=== PATIENT | female | born 1940 | race Caucasian/White ===

== ENCOUNTER 2017-05-12 18:09 | Emergency (ER) | payer MEDICARE, OTHER ==
[2010-08-06 23:16] VITALS: BMI 26.2
[2017-05-13] MEDS ORDERED: SYNTHROID137 MCG PO (13:04)
[2017-05-13] MEDS ORDERED: ATIVAN1 MG PO (13:05)
[2017-05-13 14:53] VITALS: BMI 24.7
== END 2017-05-12 20:13 | disposition left against medical advice (07) ==
LOC: D.ER 18:09
DX: R53.1 Weakness (principal); W01.0XXA Fall on same level from slipping, tripping and stumbling without subsequent striking against object, initial encounter; Y93.89 Activity, other specified; Y92.014 Private driveway to single-family (private) house as the place of occurrence of the external cause; F17.200 Nicotine dependence, unspecified, uncomplicated; F10.10 Alcohol abuse, uncomplicated

== ENCOUNTER 2017-05-12 22:34 | Inpatient (IN) | payer MEDICARE, OTHER ==
[~2017-05-12] VITALS: Ht 157.5 cm; Wt 61.4 kg
--- NOTE | ~2017-05-12 | EC ---
PATIENT:SILVIA DEGROOT DATE OF SERVICE: 05/13/17 SEX: F MEDICAL RECORD: [id number] DATE OF : 36 LOCATION:[facility] AGE OF PATIENT: 76 ADMISSION DATE: 05/14/17 REFERRING PHYSICIAN: INTERPRETING PHYSICIAN: NIDA MARTIN MD ECHOCARDIOGRAM REPORT ECHO CHARGES 4 ECHO COMPLETE CLINICAL DIAGNOSIS: ASSESS LV FUN ECHOCARDIOGRAPHIC MEASUREMENTS (adult normal given) AC root (d.<3.7cm) 3.6 cm LV Septum d (<1.2 cm> 1.4 cm Valve Excursion 2.0 cm LV Septum (systole) 1.5 cm Left Atria (s.<4.0cm> 2.9 cm LVPW d(<1.2cm) 1.4 cm RV (d.<2.3cm) 3.7 cm LVPW (sytole) 1.6 cm LV diastole(<5.6CM) 4.6 cm MV E-F(>70mm/sec) cm LV systole 3.5 cm LVOT Diameter 1.5 cm MV exc.(>10mm) 1.3 cm Est.ejection fraction (50-75%) % Pericardial Effusion N DOPPLER: LVIT cm/sec A 86.0 cm/sec E 57.0 cm/sec LA cm/sec RVSP 19 mmHg LVOT 105 cm/sec AOP1/2T m/s Asc. Ao 159 cm/sec RVOT 86 cm/sec RA cm/sec PA 122 cm/sec AV Gradient Peak 10.06mmHg AV Mean 5.33 mmHg AV Area 1.3 cm MV Gradient Peak 4.74 mmHg MV Mean 1.16 mmHg MV Area cm COMMENTS: Sales Operations Analyst: Jonathan TRACY Barber Instructor: 2 Dr. Lagunas TAPE# PACS DATE OF SERVICE: 05/14/2017 PROCEDURE: Echocardiogram. FINDINGS: 1. Left ventricular chamber size is within normal limits. Left ventricular systolic function is normal. Overall ejection fraction estimated at 60%. 2. Left atrium, right atrium, and right ventricular chamber sizes are within normal limits. 3. Valvular structures have normal structure and motion. ECHOCARDIOGRAM REPORT [id number] SILVIA DEGROOT 4. Doppler interrogation reveals no significant valvular insufficiency or stenosis. 5. No evidence of pericardial effusion or left ventricular thrombus. TRANSINT:[id number] Voice Confirmation ID: [id number] DOCUMENT ID: [id number] NIDA MARTIN MD at 1800 CC: [id number] DICTATION DATE: 05/14/17 1316 FOUNDER AND CHIEF EXECUTIVE OFFICER: 05/14/17 1414 ADM IN [place] [id number] [place] [id number]
[2017-05-13 00:03] LABS: HEMATOCRIT 34.7 % (36.0-48.0); HEMOGLOBIN 12.2 g/dL (12-16); LYMPHOCYTES 7.8 % (15-50); MCH 37.8 pg (26.0-34.0); MCHC 35.2 g/dL (31.0-37.0); MCV 107.4 fL (80.0-100.0); NEUTROPHILS 83.1 % (40-80); PLATELET COUNT 300 10x3/uL (130-400); RBC 3.23 10x6/uL (4.00-5.40); RDW 14.3 % (11.5-14.5); WBC 8.9 10x3/uL (4.8-10.8)
[2017-05-13 00:12] LABS: ALBUMIN 3.3 g/dL (3.4-5.0); ANION GAP 15.2 mmol/L (8-16); BILIRUBIN - TOTAL 0.5 mg/dL (0.2-1.3); CALCIUM 8.4 mg/dL (8.5-10.1); CARBON DIOXIDE 25.7 mmol/L (21.0-32.0); CREATININE - SERUM 1.3 mg/dL (0.6-1.3); POTASSIUM - SERUM 3.9 mmol/L (3.5-5.1); PROTEIN - SERUM 6.5 g/dL (6.4-8.2)
[2017-05-13 01:14] LABS: UDS - AMPHET NEGATIVE QUAL (NEGATIVE); UDS - BARB NEGATIVE QUAL (NEGATIVE); UDS - BENZO NEGATIVE QUAL (NEGATIVE); UDS - COCAINE NEGATIVE QUAL (NEGATIVE); UDS - OPIATE NEGATIVE QUAL (NEGATIVE); UDS - PCP NEGATIVE QUAL (NEGATIVE); UDS - THC NEGATIVE QUAL (NEGATIVE)
[2017-05-13 01:17] LABS: APPEARANCE CLEAR (CLEAR); BILIRUBIN NEGATIVE (NEGATIVE); COLOR YELLOW (YELLOW); GLUCOSE NEGATIVE (NEGATIVE); KETONE SMALL mg/dL (NEGATIVE); NITRITE NEGATIVE (NEGATIVE); PROTEIN NEGATIVE (NEGATIVE); SPECIFIC GRAVITY 1.015 (1.005-1.020); UROBILINOGEN NORMAL (NORMAL)
[2017-05-13 01:18] LABS: BACTERIA FEW /hpf (NONE SEEN); CALCIUM OXALATE CRYSTALS 0-5 /hpf (NONE SEEN); EPITHELIAL CELLS 0-5 /hpf (0-5); HYALINE CAST 0-5 /lpf (NONE SEEN); MUCUS <1+ /lpf (NONE SEEN); RED CELLS - URINE NONE SEEN /hpf (0-5); WHITE CELLS - URINE 0-5 /hpf (0-5)
[2017-05-13] MEDS ORDERED: SYNTHROID137 MCG PO (13:04)
[2017-05-13 13:05] VITALS: BP 160/76; BMI 24.7
[2017-05-13] MEDS ORDERED: ATIVAN1 MG PO (13:05)
[2017-05-13 14:53] VITALS: Ht 157.5 cm; Wt 61.4 kg
[2017-05-13 16:25] VITALS: BP 128/56
[2017-05-13 20:00] VITALS: BP 136/60
[2017-05-13 20:56] LABS: THYROID STIMULATING HORMONE 95.89 uIU/mL (0.36-3.74)
[2017-05-13 21:45] LABS: % SATURATION 18 % (15-55); IRON 46 ug/dl (35-150); TOTAL IRON BIND CAPACITY 245 ug/dl (260-445); UNSAT IRON BIND CAPACITY 199 ug/dl (150-375)
[2017-05-14] VITALS: BP 142/71
[2017-05-14 04:00] VITALS: BP 142/73
[2017-05-14 05:06] LABS: ANION GAP 14.2 mmol/L (8-16); CALCIUM 8.1 mg/dL (8.5-10.1); CARBON DIOXIDE 22.2 mmol/L (21.0-32.0); POTASSIUM - SERUM 3.4 mmol/L (3.5-5.1)
[2017-05-14 05:08] LABS: BASOPHILS 0.3 % (0-2); EOSINOPHILS 1.9 % (0-7); HEMATOCRIT 34.5 % (36.0-48.0); HEMOGLOBIN 11.5 g/dL (12-16); IMMATURE GRANULOCYTES 0.4 % (0-5); LYMPHOCYTES 16.7 % (15-50); MCH 37.2 pg (26.0-34.0); MCHC 33.3 g/dL (31.0-37.0); MEAN PLATELET VOLUME 9.1 fL (7.4-10.4); MONOCYTES 8.4 % (2-11); NEUTROPHILS 72.3 % (40-80); PLATELET COUNT 271 10x3/uL (130-400); RBC 3.09 10x6/uL (4.00-5.40); RDW 14.5 % (11.5-14.5); WBC 6.8 10x3/uL (4.8-10.8)
[2017-05-14 05:09] LABS: MCV 111.7 fL (80.0-100.0)
[2017-05-14 08:06] VITALS: BP 159/62
[2017-05-14 12:02] VITALS: BP 133/51
[2017-05-14 17:15] VITALS: BP 110/72
[2017-05-14 20:00] VITALS: BP 144/70
[2017-05-15] VITALS (7 sets, daily range): BP systolic 126–152; BP diastolic 57–88
[2017-05-15 06:39] LABS: CALC OSMOLALITY 281 mosm/kg (275-300); CALCIUM 7.9 mg/dL (8.5-10.1); CARBON DIOXIDE 19.4 mmol/L (21.0-32.0); CHLORIDE - SERUM 110 mmol/L (98-107); CREATININE - SERUM 0.7 mg/dL (0.6-1.3); GLUCOSE 95 mg/dL (74-106); HEMATOCRIT 36.1 % (36.0-48.0); HEMOGLOBIN 12.5 g/dL (12-16); LYMPHOCYTES 18.5 % (15-50); MCH 38.1 pg (26.0-34.0); MCHC 34.6 g/dL (31.0-37.0); MCV 110.1 fL (80.0-100.0); MEAN PLATELET VOLUME 8.4 fL (7.4-10.4); NEUTROPHILS 67.6 % (40-80); PLATELET COUNT 239 10x3/uL (130-400); POTASSIUM - SERUM 3.8 mmol/L (3.5-5.1); RBC 3.28 10x6/uL (4.00-5.40); RDW 14.7 % (11.5-14.5); SODIUM 142 mmol/L (136-145); UREA NITROGEN 10 mg/dL (7-18); WBC 5.3 10x3/uL (4.8-10.8); eGFR NON AFRICAN AMERICAN 86 mL/min (90-120)
[2017-05-15 08:16] LABS: FOLATE (FOLIC ACID) - SERUM 10.4 ng/mL (>3.0)
[2017-05-16 04:00] VITALS: BP 156/80
[2017-05-16 05:00] LABS: BASOPHILS 0.4 % (0-2); EOSINOPHILS 1.9 % (0-7); HEMATOCRIT 31.5 % (36.0-48.0); HEMOGLOBIN 10.5 g/dL (12-16); IMMATURE GRANULOCYTES 0.8 % (0-5); LYMPHOCYTES 10.3 % (15-50); MCH 37.1 pg (26.0-34.0); MCHC 33.3 g/dL (31.0-37.0); MCV 111.3 fL (80.0-100.0); MEAN PLATELET VOLUME 8.8 fL (7.4-10.4); MONOCYTES 12.2 % (2-11); NEUTROPHILS 74.4 % (40-80); PLATELET COUNT 227 10x3/uL (130-400); RBC 2.83 10x6/uL (4.00-5.40); RDW 14.5 % (11.5-14.5); WBC 4.8 10x3/uL (4.8-10.8)
[2017-05-16 05:05] LABS: CALCIUM 7.7 mg/dL (8.5-10.1); CREATININE - SERUM 0.8 mg/dL (0.6-1.3)
[2017-05-16 05:09] LABS: ANION GAP 10.7 mmol/L (8-16); CARBON DIOXIDE 28.2 mmol/L (21.0-32.0); POTASSIUM - SERUM 2.9 mmol/L (3.5-5.1)
[2017-05-16 09:14] VITALS: BP 140/66
[2017-05-16] MEDS ORDERED: PROTONIX40 MG PO (13:24)
[2017-05-16] MEDS ORDERED: Multivitamin LIQUID PO (13:25)
[2017-05-16] MEDS ORDERED: THIAMINE HCL50 MG PO (13:25)
[2017-05-16 13:54] VITALS: BP 160/70
[2017-05-16 16:25] VITALS: BP 143/77
[2017-05-16 20:00] VITALS: BP 128/56
[2017-05-17 02:27] VITALS: BP 124/54
[2017-05-17 04:00] VITALS: BP 118/50
[2017-05-17 05:46] LABS: BASOPHILS 0.8 % (0-2); EOSINOPHILS 0.5 % (0-7); HEMATOCRIT 33.8 % (36.0-48.0); HEMOGLOBIN 11.3 g/dL (12-16); IMMATURE GRANULOCYTES 0.5 % (0-5); LYMPHOCYTES 14.4 % (15-50); MCH 37.4 pg (26.0-34.0); MCHC 33.4 g/dL (31.0-37.0); MCV 111.9 fL (80.0-100.0); MEAN PLATELET VOLUME 8.8 fL (7.4-10.4); MONOCYTES 11.1 % (2-11); NEUTROPHILS 72.7 % (40-80); PLATELET COUNT 205 10x3/uL (130-400); RBC 3.02 10x6/uL (4.00-5.40); RDW 14.7 % (11.5-14.5)
[2017-05-17 05:56] LABS: ANION GAP 11.7 mmol/L (8-16); CALCIUM 8.2 mg/dL (8.5-10.1); CARBON DIOXIDE 29.3 mmol/L (21.0-32.0); CREATININE - SERUM 0.8 mg/dL (0.6-1.3)
[2017-05-17 08:00] VITALS: BP 137/66
[2017-05-17 11:22] LABS: MAGNESIUM - SERUM 1.9 mg/dL (1.8-2.4); PHOSPHOROUS 3.6 mg/dL (2.5-4.9)
[2017-05-17 11:58] VITALS: BP 140/75
[2017-05-17 15:41] VITALS: BP 155/64
[2017-05-17 21:58] VITALS: BP 159/71
[2017-05-18 05:55] LABS: BASOPHILS 0.3 % (0-2); EOSINOPHILS 0.7 % (0-7); HEMATOCRIT 34.6 % (36.0-48.0); HEMOGLOBIN 11.4 g/dL (12-16); IMMATURE GRANULOCYTES 0.7 % (0-5); LYMPHOCYTES 14.7 % (15-50); MCH 36.4 pg (26.0-34.0); MCHC 32.9 g/dL (31.0-37.0); MCV 110.5 fL (80.0-100.0); MONOCYTES 12.7 % (2-11); NEUTROPHILS 70.9 % (40-80); PLATELET COUNT 176 10x3/uL (130-400); RBC 3.13 10x6/uL (4.00-5.40); RDW 14.2 % (11.5-14.5)
[2017-05-18 06:06] LABS: ANION GAP 11.9 mmol/L (8-16); CALCIUM 8.1 mg/dL (8.5-10.1); CARBON DIOXIDE 27.3 mmol/L (21.0-32.0); CREATININE - SERUM 0.8 mg/dL (0.6-1.3); POTASSIUM - SERUM 3.2 mmol/L (3.5-5.1)
[2017-05-18 09:42] VITALS: BP 151/84
[2017-05-18 13:19] VITALS: BP 148/80
[2017-05-18 17:02] VITALS: BP 145/78
[2017-05-19] VITALS: BP 123/75
[2017-05-19 04:00] VITALS: BP 141/68
[2017-05-19 04:35] LABS: BASOPHILS 0.3 % (0-2); EOSINOPHILS 0.9 % (0-7); HEMOGLOBIN 11.5 g/dL (12-16); IMMATURE GRANULOCYTES 0.3 % (0-5); LYMPHOCYTES 20.5 % (15-50); MCH 36.5 pg (26.0-34.0); MCHC 32.9 g/dL (31.0-37.0); MCV 111.1 fL (80.0-100.0); MEAN PLATELET VOLUME 9.1 fL (7.4-10.4); MONOCYTES 11.6 % (2-11); NEUTROPHILS 66.4 % (40-80); PLATELET COUNT 167 10x3/uL (130-400); RBC 3.15 10x6/uL (4.00-5.40); RDW 14.3 % (11.5-14.5); WBC 3.4 10x3/uL (4.8-10.8)
[2017-05-19 04:51] LABS: ALBUMIN 2.6 g/dL (3.4-5.0); ALKALINE PHOSPHATASE 60 U/L (46-116); ALT (SGPT) 107 U/L (10-68); CALC OSMOLALITY 273 mosm/kg (275-300); CALCIUM 8.2 mg/dL (8.5-10.1); CARBON DIOXIDE 28.7 mmol/L (21.0-32.0); CHLORIDE - SERUM 102 mmol/L (98-107); CREATININE - SERUM 0.7 mg/dL (0.6-1.3); GLUCOSE 90 mg/dL (74-106); POTASSIUM - SERUM 3.5 mmol/L (3.5-5.1); PROTEIN - SERUM 5.7 g/dL (6.4-8.2); SODIUM 137 mmol/L (136-145); UREA NITROGEN 12 mg/dL (7-18); eGFR NON AFRICAN AMERICAN 86 mL/min (90-120)
[2017-05-19 08:38] VITALS: BP 146/71
[2017-05-19 12:28] VITALS: BP 156/80
[2017-05-19 16:20] VITALS: BP 150/88
[2017-05-20 05:19] LABS: BASOPHILS 0.3 % (0-2); EOSINOPHILS 1.7 % (0-7); HEMATOCRIT 34.5 % (36.0-48.0); HEMOGLOBIN 11.3 g/dL (12-16); IMMATURE GRANULOCYTES 0.3 % (0-5); LYMPHOCYTES 22.3 % (15-50); MCH 36.5 pg (26.0-34.0); MCHC 32.8 g/dL (31.0-37.0); MCV 111.3 fL (80.0-100.0); MEAN PLATELET VOLUME 9.2 fL (7.4-10.4); NEUTROPHILS 64.4 % (40-80); PLATELET COUNT 160 10x3/uL (130-400); RDW 14.4 % (11.5-14.5); WBC 3.5 10x3/uL (4.8-10.8)
[2017-05-20 06:00] VITALS: BP 106/47
[2017-05-20 06:00] LABS: ALBUMIN 2.6 g/dL (3.4-5.0); BILIRUBIN - TOTAL 0.31 mg/dL (0.2-1.3); CALCIUM 8.1 mg/dL (8.5-10.1); CARBON DIOXIDE 28.5 mmol/L (21.0-32.0); POTASSIUM - SERUM 3.5 mmol/L (3.5-5.1); PROTEIN - SERUM 5.8 g/dL (6.4-8.2)
[2017-05-20 06:01] LABS: CREATININE - SERUM 0.9 mg/dL (0.6-1.3)
[2017-05-20 08:42] VITALS: BP 108/50
[2017-05-20 11:49] VITALS: BP 104/52
[2017-05-20 15:51] VITALS: BP 106/50
[2017-05-20 20:00] VITALS: BP 125/77
[2017-05-21 04:00] VITALS: BP 120/91
[2017-05-21 05:51] LABS: BASOPHILS 0.6 % (0-2); EOSINOPHILS 2.6 % (0-7); HEMATOCRIT 32.5 % (36.0-48.0); HEMOGLOBIN 10.8 g/dL (12-16); IMMATURE GRANULOCYTES 0.6 % (0-5); MCH 36.6 pg (26.0-34.0); MCHC 33.2 g/dL (31.0-37.0); MCV 110.2 fL (80.0-100.0); MEAN PLATELET VOLUME 9.3 fL (7.4-10.4); MONOCYTES 9.7 % (2-11); NEUTROPHILS 60.5 % (40-80); PLATELET COUNT 153 10x3/uL (130-400); RBC 2.95 10x6/uL (4.00-5.40); RDW 14.5 % (11.5-14.5); WBC 3.5 10x3/uL (4.8-10.8)
[2017-05-21 06:21] LABS: ALBUMIN 2.4 g/dL (3.4-5.0); ANION GAP 10.3 mmol/L (8-16); BILIRUBIN - TOTAL 0.2 mg/dL (0.2-1.3); CALCIUM 7.9 mg/dL (8.5-10.1); POTASSIUM - SERUM 3.3 mmol/L (3.5-5.1); PROTEIN - SERUM 5.5 g/dL (6.4-8.2)
[2017-05-21 08:41] VITALS: BP 139/72
[2017-05-21] MEDS ORDERED: ACETAMINOPHEN325 MG PO (11:00)
[2017-05-21] MEDS ORDERED: ATIVAN1 MG PO (11:00)
[2017-05-21] MEDS ORDERED: TAMIFLU75 MG PO (11:00)
[2017-05-21] MEDS ORDERED: LIBRIUM5 MG PO (11:00)
[2017-05-21] MEDS ORDERED: LOPERAMIDE HCL2 MG PO (11:00)
[2017-05-21 11:23] LABS: APPEARANCE CLEAR (CLEAR); BILIRUBIN NEGATIVE (NEGATIVE); COLOR YELLOW (YELLOW); GLUCOSE NEGATIVE (NEGATIVE); KETONE NEGATIVE (NEGATIVE); NITRITE NEGATIVE (NEGATIVE); PROTEIN NEGATIVE (NEGATIVE); SPECIFIC GRAVITY 1.015 (1.005-1.020); UROBILINOGEN NORMAL (NORMAL)
[2017-05-21 11:55] VITALS: BP 133/61
[2017-05-23 03:06] LABS: OVA + PARASITE EXAM Final report (())
== END 2017-05-21 18:19 | DRG 682 ==
LOC: D.ER 22:34 → D.MS 05-13 11:55 → OBSVTIME 05-13 11:55 → D.MS 05-14 15:30
PROVIDERS: Family Medicine; Internal Medicine Nephrology
DX: N17.9 Acute kidney failure, unspecified (principal); G93.40 Encephalopathy, unspecified; F10.20 Alcohol dependence, uncomplicated; D53.9 Nutritional anemia, unspecified; Z91.19 Patient's noncompliance with other medical treatment and regimen; E03.9 Hypothyroidism, unspecified; R53.1 Weakness; J11.1 Influenza due to unidentified influenza virus with other respiratory manifestations; W01.0XXA Fall on same level from slipping, tripping and stumbling without subsequent striking against object, initial encounter; E87.6 Hypokalemia

== ENCOUNTER 2017-05-21 16:53 | Inpatient (IN) | payer MEDICARE, OTHER ==
[~2017-05-21] VITALS: Ht 157.5 cm; Wt 61.2 kg
--- NOTE | ~2017-05-21 | RHP ---
PATIENT: SILVIA DEGROOT MEDICAL RECORD: [id number] ACCOUNT: [id number] [facility] Jennifer1111 : 36 ADMISSION DATE: 05/21/17 REHABILITATION HISTORY AND PHYSICAL EXAMINATION POST ADMISSION PHYSICIAN EXAMINATION DATE OF ADMISSION: 05/21/2017. ADMITTING DIAGNOSIS: Acute encephalopathy. HISTORY OF PRESENT ILLNESS: The patient is a 76-year-old female patient admitted to rehab with acute encephalopathy. She presented to the Emergency Room on 05/12/2017 with altered mental status, unable to stand, and history of fallen 3 times a day. Her history is discordant with other report. She reports she just tripped in a driveway over her shoe that she had taken off. She reports drinking at least 3 bottles of wine and also taken some lorazepam. She was pale and had multiple bruises on her arms and legs, and a positive motor weakness in all extremities. She was admitted to the hospital for observation. While she was there, she developed cough and fever with a T-max of 101.8. She was changed to inpatient status and PT and OT were ordered and influenza swab was positive for influenza B. She was placed in droplet isolation and started on Tamiflu and Rocephin. Previously, she was living alone and was moderate independent with ADLs and mobility using a cane or walker. Daughter reports she has a long history of alcoholism, medication compliance, and lives in an unsafe condition. She was encouraged to report this to [facility] who opened up a case and will follow at home at discharge. Currently, back to her baseline mentally, but remains weak and deconditioned by her flu. She has moderate to max assist for ADLs and mobility. She ambulates 12 feet with 45% assist with PT using rolling walker and a gait belt. She tires easily and loses her balance often and would definitely benefit from inpatient rehab to get back to her prior level of functioning. COMORBIDITIES: Include influenza, fever, cough, diarrhea, alcoholism, acute mental status changes, acute kidney injury, macrocytic anemia, lethargy, falls, hypothyroidism, hypokalemia, deconditioning, depression, anxiety, B12 or thiamine deficiency, and alcohol abuse. PAST MEDICAL HISTORY: Significant for loss of hearing, depression, anxiety, alcohol abuse, addictive personality, and multiple falls. PAST SURGICAL HISTORY: Includes hysterectomy, facelift, brow lift, and breast reduction. ALLERGIES: IODINE, ASPIRIN, and TETANUS. CURRENT MEDICATIONS: Include levothyroxine 137 mcg daily. She is on B1 vitamin 100 mg daily, Protonix 40 mg daily, multivitamin daily. She is on electrolyte protocol at this time. She is on Ativan 1 mg as needed, Imodium 2 mg q.4 hours p.r.n. diarrhea. She is on Librium 5 mg t.i.d. to prevent DTs and acetaminophen 650 mg b.i.d. p.r.n. HABITS: No current tobacco use. She does have a history of alcohol use. FAMILY HISTORY: Noncontributory. HISTORY AND PHYSICAL [id number] SILVIA DEGROOT SOCIAL HISTORY: As above, she lives alone and would like to return back to the this but of course Adult Protective Services will play a role in this. REVIEW OF SYSTEMS: GENERAL: Does complain of weakness. HEENT: She denies cold, cough, or congestion. CARDIOVASCULAR: Denies chest pain. PHYSICAL EXAMINATION: VITAL SIGNS: Stable, afebrile. GENERAL: Elderly female, in no acute distress, alert upon exam. HEENT: Normocephalic and atraumatic. Mucosa moist. NECK: Supple. No lymphadenopathy. LUNGS: Clear at this time. HEART: Regular rate and rhythm. ABDOMEN: Benign. EXTREMITIES: No clubbing, cyanosis, or edema. She does have multiple bruising on her skin areas. NEUROLOGIC: Seems intact. LABORATORY DATA: Her white count is 3.6, H&H of 11.4 and 34.2, and platelet count is 180. Sodium 142, potassium 3.8, BUN and creatinine of 12 and 0.8. Blood sugar is noted to be 90. ASSESSMENT: This is a 76-year-old female patient admitted to rehab with a working diagnosis of acute encephalopathy, probably secondary to alcoholism. The patient has potential to make improvement. We instituted the following multidisciplinary therapies including to, but not limited to physical, occupational, respiratory, speech, nutritional services, prosthetics and orthotics. Given her complex condition and risk for more complications, rehabilitation services cannot be provided at a low level of care such as a retirement facility. PLAN: 1. Admit to [facility] rehab for intensive inpatient therapy to include the following disciplines: A. Physical therapy to improve gait, all transfer skills and bed mobility and modifying level. B. Occupational therapy to improve activities of daily living to a modified level. C. Case management to assist with discharge planning and placement options. D. Nutrition to assist with nutritional needs. E. Rehabilitation nursing to assist in monitoring the patient's underlying medical conditions and to assist with any type of bowel or bladder management. 2. The patient's current medication and medical care will be continued. 3. The patient will be placed on standard fall precautions. 4. The patient's estimated length of stay is approximately 7-10 days. 5. Discuss this patient during care team staff meeting this week. May go ahead and draw a thyroid and vitamin D levels on this patient and we will treat appropriately. We will work on her alcohol use during her stay and I will follow up on Wednesday or early. TRANSINT:[id number] Voice Confirmation ID: [id number] DOCUMENT ID: [id number] HISTORY AND PHYSICAL [id number] SILVIA DEGROOT notes whether there has been none or any medical/functional change since admission: - No change since preadmission screen. KARL attests patient continues to be appropriate for IRF: - Continues to be appropriate. ESTHER JOHN MD at 0817 CC: [id number] DICTATION DATE: 05/22/17 1155 TEMPLATE LAYOUT WORKER: 05/22/17 1217 ADM IN [place] [id number] [place] [address]
[~2017-05-21 16:53] MED LIST: ACETAMINOPHEN325 MG PO; ATIVAN1 MG PO; LIBRIUM5 MG PO; LOPERAMIDE HCL2 MG PO; Multivitamin LIQUID PO; PROTONIX40 MG PO; SYNTHROID137 MCG PO; TAMIFLU75 MG PO; THIAMINE HCL50 MG PO
[2017-05-21 19:00] VITALS: BP 126/67
[2017-05-21 22:04] VITALS: BP 126/67; BMI 24.7
[2017-05-22 05:30] LABS: BASOPHILS 0.8 % (0-2); EOSINOPHILS 3.4 % (0-7); HEMATOCRIT 34.2 % (36.0-48.0); HEMOGLOBIN 11.4 g/dL (12-16); IMMATURE GRANULOCYTES 0.6 % (0-5); LYMPHOCYTES 31.1 % (15-50); MCH 36.7 pg (26.0-34.0); MCHC 33.3 g/dL (31.0-37.0); MEAN PLATELET VOLUME 9.6 fL (7.4-10.4); MONOCYTES 9.2 % (2-11); NEUTROPHILS 54.9 % (40-80); PLATELET COUNT 180 10x3/uL (130-400); RBC 3.11 10x6/uL (4.00-5.40); RDW 14.5 % (11.5-14.5); WBC 3.6 10x3/uL (4.8-10.8)
[2017-05-22 05:43] LABS: ANION GAP 10.4 mmol/L (8-16); CALCIUM 8.4 mg/dL (8.5-10.1); CARBON DIOXIDE 29.4 mmol/L (21.0-32.0); CREATININE - SERUM 0.8 mg/dL (0.6-1.3); POTASSIUM - SERUM 3.8 mmol/L (3.5-5.1)
[2017-05-22 08:00] VITALS: BP 127/062
[2017-05-22 19:35] VITALS: BP 143/58
[2017-05-23 08:54] VITALS: BP 177/89
[2017-05-23 22:20] VITALS: BP 141/76
[2017-05-24 06:07] LABS: BASOPHILS 0.5 % (0-2); EOSINOPHILS 2.3 % (0-7); HEMATOCRIT 34.3 % (36.0-48.0); HEMOGLOBIN 11.4 g/dL (12-16); IMMATURE GRANULOCYTES 0.8 % (0-5); LYMPHOCYTES 35.7 % (15-50); MCH 36.8 pg (26.0-34.0); MCHC 33.2 g/dL (31.0-37.0); MCV 110.6 fL (80.0-100.0); MEAN PLATELET VOLUME 9.2 fL (7.4-10.4); MONOCYTES 11.8 % (2-11); NEUTROPHILS 48.9 % (40-80); RDW 14.3 % (11.5-14.5); WBC 3.9 10x3/uL (4.8-10.8)
[2017-05-24 06:11] LABS: PLATELET COUNT 274 10x3/uL (130-400)
[2017-05-24 06:55] LABS: CALCIUM 8.9 mg/dL (8.5-10.1); CARBON DIOXIDE 28.3 mmol/L (21.0-32.0); CREATININE - SERUM 0.9 mg/dL (0.6-1.3); POTASSIUM - SERUM 3.3 mmol/L (3.5-5.1); THYROID STIMULATING HORMONE 20.46 uIU/mL (0.36-3.74)
[2017-05-24 08:00] VITALS: BP 163/77
[2017-05-24 20:00] VITALS: BP 143/72
[2017-05-25 08:00] VITALS: BP 143/83
[2017-05-25 11:09] VITALS: Ht 157.5 cm; Wt 61.2 kg
[2017-05-25 21:20] VITALS: BP 143/93
[2017-05-26 05:52] LABS: BASOPHILS 0.2 % (0-2); EOSINOPHILS 1.4 % (0-7); HEMATOCRIT 32.4 % (36.0-48.0); HEMOGLOBIN 10.7 g/dL (12-16); IMMATURE GRANULOCYTES 1.2 % (0-5); LYMPHOCYTES 23.2 % (15-50); MCH 36.5 pg (26.0-34.0); MCV 110.6 fL (80.0-100.0); MEAN PLATELET VOLUME 8.9 fL (7.4-10.4); MONOCYTES 10.9 % (2-11); NEUTROPHILS 63.1 % (40-80); RBC 2.93 10x6/uL (4.00-5.40); RDW 14.5 % (11.5-14.5)
[2017-05-26 06:08] LABS: PLATELET COUNT 336 10x3/uL (130-400); WBC 5.8 10x3/uL (4.8-10.8)
[2017-05-26 06:17] LABS: ANION GAP 10.3 mmol/L (8-16); CALCIUM 8.7 mg/dL (8.5-10.1); CARBON DIOXIDE 27.9 mmol/L (21.0-32.0); CREATININE - SERUM 0.8 mg/dL (0.6-1.3); POTASSIUM - SERUM 3.2 mmol/L (3.5-5.1)
[2017-05-26 08:33] VITALS: BP 159/79
[2017-05-26 21:05] VITALS: BP 149/96
[2017-05-27 08:00] VITALS: BP 141/64
[2017-05-27 22:06] VITALS: BP 174/92
[2017-05-28 06:59] LABS: BASOPHILS 0.5 % (0-2); EOSINOPHILS 1.7 % (0-7); HEMATOCRIT 32.8 % (36.0-48.0); HEMOGLOBIN 10.4 g/dL (12-16); IMMATURE GRANULOCYTES 1.2 % (0-5); MCH 36.1 pg (26.0-34.0); MCHC 31.7 g/dL (31.0-37.0); MEAN PLATELET VOLUME 9.3 fL (7.4-10.4); MONOCYTES 14.6 % (2-11); PLATELET COUNT 400 10x3/uL (130-400); RBC 2.88 10x6/uL (4.00-5.40); RDW 14.8 % (11.5-14.5)
[2017-05-28 07:01] LABS: ANION GAP 15.9 mmol/L (8-16); CALCIUM 8.4 mg/dL (8.5-10.1); CARBON DIOXIDE 23.7 mmol/L (21.0-32.0); CREATININE - SERUM 0.8 mg/dL (0.6-1.3); MCV 113.9 fL (80.0-100.0); POTASSIUM - SERUM 4.6 mmol/L (3.5-5.1); WBC 4.1 10x3/uL (4.8-10.8)
[2017-05-28 08:33] VITALS: BP 138/78
[2017-05-28 19:33] VITALS: BP 143/75
[2017-05-29 14:25] VITALS: BP 154/77
[2017-05-29 23:22] VITALS: BP 118/74
[2017-05-30 08:35] VITALS: BP 156/98
[2017-05-30 19:00] VITALS: BP 136/64
[2017-05-31 05:51] LABS: BASOPHILS 0.6 % (0-2); EOSINOPHILS 1.6 % (0-7); HEMATOCRIT 30.4 % (36.0-48.0); HEMOGLOBIN 9.9 g/dL (12-16); IMMATURE GRANULOCYTES 0.4 % (0-5); LYMPHOCYTES 26.5 % (15-50); MCH 36.1 pg (26.0-34.0); MCHC 32.6 g/dL (31.0-37.0); MCV 110.9 fL (80.0-100.0); MONOCYTES 12.4 % (2-11); NEUTROPHILS 58.5 % (40-80); PLATELET COUNT 398 10x3/uL (130-400); RBC 2.74 10x6/uL (4.00-5.40); RDW 14.4 % (11.5-14.5)
[2017-05-31 06:13] LABS: ANION GAP 11.1 mmol/L (8-16); CALCIUM 8.2 mg/dL (8.5-10.1); CARBON DIOXIDE 26.9 mmol/L (21.0-32.0); CREATININE - SERUM 0.9 mg/dL (0.6-1.3)
[2017-05-31 11:51] VITALS: BP 144/73
[2017-05-31 19:10] VITALS: BP 141/63
[2017-06-01 08:16] VITALS: BP 149/65
[2017-06-01 19:15] VITALS: BP 137/79
[2017-06-02 06:50] LABS: BASOPHILS 0.4 % (0-2); EOSINOPHILS 1.3 % (0-7); HEMATOCRIT 32.5 % (36.0-48.0); HEMOGLOBIN 10.2 g/dL (12-16); IMMATURE GRANULOCYTES 0.2 % (0-5); LYMPHOCYTES 25.4 % (15-50); MCH 35.5 pg (26.0-34.0); MCHC 31.4 g/dL (31.0-37.0); MCV 113.2 fL (80.0-100.0); MEAN PLATELET VOLUME 9.3 fL (7.4-10.4); MONOCYTES 12.7 % (2-11); PLATELET COUNT 364 10x3/uL (130-400); RBC 2.87 10x6/uL (4.00-5.40); RDW 14.3 % (11.5-14.5); WBC 4.6 10x3/uL (4.8-10.8)
[2017-06-02 07:23] LABS: ANION GAP 10.4 mmol/L (8-16); CALCIUM 8.4 mg/dL (8.5-10.1); CREATININE - SERUM 0.8 mg/dL (0.6-1.3); POTASSIUM - SERUM 4.4 mmol/L (3.5-5.1)
[2017-06-02 08:07] VITALS: BP 148/65
[2017-06-02 18:59] VITALS: BP 128/70; BP 72/48
[2017-06-03 08:00] VITALS: BP 150/72
[2017-06-03] MEDS ORDERED: ATIVAN1 MG PO (08:53)
== END 2017-06-03 17:53 | disposition home health service (06) | DRG 71 ==
LOC: D.REHAB 16:53
PROVIDERS: Emergency Medicine
DX: G93.40 Encephalopathy, unspecified (principal); N17.9 Acute kidney failure, unspecified; J11.1 Influenza due to unidentified influenza virus with other respiratory manifestations; F10.20 Alcohol dependence, uncomplicated; D53.9 Nutritional anemia, unspecified; R53.83 Other fatigue; E03.9 Hypothyroidism, unspecified; E87.6 Hypokalemia; F41.8 Other specified anxiety disorders; R50.9 Fever, unspecified; E53.8 Deficiency of other specified B group vitamins; R41.82 Altered mental status, unspecified

== ENCOUNTER 2017-06-28 14:24 | Emergency (ER) | payer MEDICARE, OTHER ==
[2017-05-25 11:09] VITALS: BMI 24.7
[2017-06-28 14:45] LABS: BASOPHILS 0.5 % (0-2); EOSINOPHILS 2.3 % (0-7); HEMATOCRIT 37.9 % (36.0-48.0); HEMOGLOBIN 12.4 g/dL (12-16); IMMATURE GRANULOCYTES 0.2 % (0-5); LYMPHOCYTES 16.6 % (15-50); MCH 33.8 pg (26.0-34.0); MCHC 32.7 g/dL (31.0-37.0); MCV 103.3 fL (80.0-100.0); MEAN PLATELET VOLUME 9.4 fL (7.4-10.4); MONOCYTES 11.1 % (2-11); NEUTROPHILS 69.3 % (40-80); PLATELET COUNT 388 10x3/uL (130-400); RBC 3.67 10x6/uL (4.00-5.40); RDW 12.7 % (11.5-14.5); WBC 6.5 10x3/uL (4.8-10.8)
[2017-06-28 14:59] LABS: ALKALINE PHOSPHATASE 83 U/L (46-116); ALT (SGPT) 14 U/L (10-68); BILIRUBIN - TOTAL 0.49 mg/dL (0.2-1.3); CALC OSMOLALITY 280 mosm/kg (275-300); CALCIUM 9.1 mg/dL (8.5-10.1); CARBON DIOXIDE 30.1 mmol/L (21.0-32.0); CHLORIDE - SERUM 104 mmol/L (98-107); CREATININE - SERUM 0.7 mg/dL (0.6-1.3); GLUCOSE 104 mg/dL (74-106); POTASSIUM - SERUM 3.6 mmol/L (3.5-5.1); PROTEIN - SERUM 7.4 g/dL (6.4-8.2); SODIUM 142 mmol/L (136-145); UREA NITROGEN 6 mg/dL (7-18); eGFR NON AFRICAN AMERICAN 85 mL/min (90-120)
[2017-06-28 15:01] LABS: INR 0.98 (0.85-1.17); PROTIME 12.6 SECONDS (11.6-15.0)
[2017-06-28 15:27] LABS: CREATINE KINASE 53 UL (21-215); PRO BNP 736 pg/mL (0-450)
[2017-06-28 15:28] LABS: TROPONIN-I < 0.017 ng/mL (0.000-0.060)
[2017-06-28 16:21] LABS: APPEARANCE CLEAR (CLEAR); BILIRUBIN NEGATIVE (NEGATIVE); COLOR YELLOW (YELLOW); GLUCOSE NEGATIVE (NEGATIVE); KETONE NEGATIVE (NEGATIVE); NITRITE NEGATIVE (NEGATIVE); PROTEIN NEGATIVE (NEGATIVE); UROBILINOGEN NORMAL (NORMAL)
[2017-06-28 16:23] LABS: BACTERIA FEW /hpf (NONE SEEN); EPITHELIAL CELLS 0-5 /hpf (0-5); WHITE CELLS - URINE 0-5 /hpf (0-5)
[2017-06-28 16:32] LABS: UDS - AMPHET NEGATIVE QUAL (NEGATIVE); UDS - BARB NEGATIVE QUAL (NEGATIVE); UDS - BENZO POSITIVE QUAL (NEGATIVE); UDS - COCAINE NEGATIVE QUAL (NEGATIVE); UDS - OPIATE NEGATIVE QUAL (NEGATIVE); UDS - PCP NEGATIVE QUAL (NEGATIVE); UDS - THC NEGATIVE QUAL (NEGATIVE)
== END 2017-06-28 18:16 | disposition home or self-care (01) ==
LOC: D.ER 14:24
PROVIDERS: Family Medicine; Nurse Practitioner Family
DX: R44.3 Hallucinations, unspecified (principal)

== ENCOUNTER 2018-06-29 09:57 | Inpatient (IN) | payer MEDICARE, OTHER ==
[~2018-06-29] VITALS: Ht 162.6 cm; Wt 72.6 kg
--- NOTE | ~2018-06-29 | PN ---
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 She also had a thyroidectomy and it was shown. Laboratory shows that the patient had a TSH of 0.00, a free T4 of 2.24 and a free T3 of 2.5. The patient's today her tremors continue to be nonexistent. She is socializing with others. She is aware that her thyroid medicine has been stopped and asked for an explanation why would she was satisfied with. Nursing reports that she is alert and oriented times 1-2 best, frequently confused. She slept 7.75 hours. OBJECTIVE: Her latest vital signs are temperature 97.3, pulse 83, respiratory rate 18, blood pressure 137/74, and oxygen saturation 98%. ASSESSMENT: Unchanged. PLAN: Thyroid medication is being stopped secondary to basically nonexistent TSH. We will decrease Librium as the patient's vital signs have been stable up to 25 mg at bedtime. Otherwise, we will continue with discharge disposition, diagnosis as the patient needs a more structured living environment. Case discussed with nursing. Chart reviewed and the patient interviewed. TRANSINT:[id number] Voice Confirmation ID: [id number] DOCUMENT ID: [id number] JACKIE PERKINS MD CC: [id number] DICTATION DATE: 07/02/18 1412 CALCINER OPERATOR: 07/02/18 1633 ADM IN [place] [id number] [place] [address]
[2018-06-29] MEDS ORDERED: ATIVAN1 MG PO (10:32)
--- NOTE | 2018-06-29 11:14 | NUR ---
UPON DISCHARGE, PT AND FAMILY MEMBER REQUESTED TO SEE EDP. EDP NOTIFIED. WILL DISCHARGE AFTER EDP SPEAKS WITH PATIENT.
[2018-06-29 12:04] LABS: BASOPHILS 0.2 % (0-2); EOSINOPHILS 0.1 % (0-7); HEMATOCRIT 38.4 % (36.0-48.0); HEMOGLOBIN 12.9 g/dL (12-16); IMMATURE GRANULOCYTES 0.2 % (0-5); LYMPHOCYTES 14.6 % (15-50); MCHC 33.6 g/dL (31.0-37.0); MCV 92.3 fL (80.0-100.0); MEAN PLATELET VOLUME 9.5 fL (7.4-10.4); MONOCYTES 7.8 % (2-11); NEUTROPHILS 77.1 % (40-80); PLATELET COUNT 272 10x3/uL (130-400); RBC 4.16 10x6/uL (4.00-5.40); RDW 12.3 % (11.5-14.5); WBC 9.7 10x3/uL (4.8-10.8)
[2018-06-29 12:26] LABS: ALBUMIN 3.2 g/dL (3.4-5.0); ANION GAP 13.5 mmol/L (8-16); BILIRUBIN - TOTAL 0.63 mg/dL (0.2-1.3); CALCIUM 8.8 mg/dL (8.5-10.1); CARBON DIOXIDE 25.5 mmol/L (21.0-32.0)
[2018-06-29 16:26] LABS: MAGNESIUM - SERUM 2.1 mg/dL (1.8-2.4)
[2018-06-29 16:44] VITALS: BP 152/89
[2018-06-29 19:53] VITALS: BP 154/49
[2018-06-29 19:57] LABS: UDS - AMPHET NEGATIVE QUAL (NEGATIVE); UDS - BARB NEGATIVE QUAL (NEGATIVE); UDS - BENZO NEGATIVE QUAL (NEGATIVE); UDS - COCAINE NEGATIVE QUAL (NEGATIVE); UDS - OPIATE NEGATIVE QUAL (NEGATIVE); UDS - PCP NEGATIVE QUAL (NEGATIVE); UDS - THC NEGATIVE QUAL (NEGATIVE)
--- NOTE | 2018-06-30 01:16 | NUR ---
Patient arrived at 19:30 from our D.E. via wheelchair accompanied by family, code status is full code, code word is giles shadow, consent signed by daughter, here for increased confusion, and not taking medication correctly, tremors of upper aimee for the last few days, physician aware of admit, will continue to monitor.
[2018-06-30 03:57] VITALS: BP 154/49
[2018-06-30 06:39] LABS: BASOPHILS 0.4 % (0-2); EOSINOPHILS 2.7 % (0-7); HEMATOCRIT 36.3 % (36.0-48.0); HEMOGLOBIN 11.6 g/dL (12-16); IMMATURE GRANULOCYTES 0.2 % (0-5); MCH 30.1 pg (26.0-34.0); MEAN PLATELET VOLUME 9.5 fL (7.4-10.4); MONOCYTES 11.9 % (2-11); NEUTROPHILS 59.8 % (40-80); PLATELET COUNT 237 10x3/uL (130-400); RBC 3.86 10x6/uL (4.00-5.40); RDW 12.4 % (11.5-14.5); WBC 8.2 10x3/uL (4.8-10.8)
[2018-06-30 07:08] LABS: ALBUMIN 2.7 g/dL (3.4-5.0); ANION GAP 12.7 mmol/L (8-16); BILIRUBIN - TOTAL 0.46 mg/dL (0.2-1.3); CALCIUM 8.4 mg/dL (8.5-10.1); CARBON DIOXIDE 25.2 mmol/L (21.0-32.0); CHOL - HDL RATIO 2.8 ratio (2.3-4.1); CREATININE - SERUM 0.9 mg/dL (0.6-1.3); LDL-HDL RATIO 1.5 ratio (1.5-3.5); MAGNESIUM - SERUM 2.2 mg/dL (1.8-2.4); POTASSIUM - SERUM 3.9 mmol/L (3.5-5.1); PROTEIN - SERUM 6.3 g/dL (6.4-8.2)
[2018-06-30 09:51] VITALS: BP 177/82
--- NOTE | 2018-06-30 10:00 | NUR ---
RECEIVED PATIENT IN DINING ROOM FOR B'FAST, ALERT, CALM, COOPERATIVE. MEDS ADMIN PER ORDERS WITH COMPLETE MED COMPLIANCE NOTED. COOPERATIVE WITH GROUP AND STAFF REQUESTS. CONT POC INCLUDING MEDS AND GROUP THERAPY DIRECTED.
[2018-06-30 10:06] VITALS: BP 177/82
[2018-06-30 14:48] VITALS: BMI 29.3
[2018-06-30 15:34] VITALS: Ht 162.6 cm; Wt 72.6 kg
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
--- NOTE | 2018-07-01 03:02 | NUR ---
B) Patient is alert and oriented to self, very confused, very demanding and entilted at times, I) Administered scheduled medications as ordered, monitored for safety, redirected as needed, R) Mediation compliant, resting quietly in bed now, P) Continue plan of care.
[2018-07-01 06:16] LABS: VITAMIN D 25 HYDROXY 32.2 ng/mL (30.0-100.0)
[2018-07-01 07:14] LABS: BASOPHILS 0.4 % (0-2); EOSINOPHILS 2.7 % (0-7); HEMATOCRIT 38.2 % (36.0-48.0); HEMOGLOBIN 12.6 g/dL (12-16); IMMATURE GRANULOCYTES 0.1 % (0-5); LYMPHOCYTES 22.5 % (15-50); MCH 30.8 pg (26.0-34.0); MCV 93.4 fL (80.0-100.0); MEAN PLATELET VOLUME 9.6 fL (7.4-10.4); MONOCYTES 8.7 % (2-11); NEUTROPHILS 65.6 % (40-80); PLATELET COUNT 270 10x3/uL (130-400); RBC 4.09 10x6/uL (4.00-5.40); RDW 12.4 % (11.5-14.5); WBC 7.7 10x3/uL (4.8-10.8)
[2018-07-01 07:29] LABS: FOLATE (FOLIC ACID) - SERUM 11.4 ng/mL (>3.0); RAPID PLASMA REAGIN Non Reactive (Non Reactive)
[2018-07-01 07:30] LABS: ALBUMIN 3.1 g/dL (3.4-5.0); ANION GAP 14.2 mmol/L (8-16); BILIRUBIN - TOTAL 0.44 mg/dL (0.2-1.3); CALCIUM 8.5 mg/dL (8.5-10.1); CARBON DIOXIDE 25.2 mmol/L (21.0-32.0); CREATININE - SERUM 1.1 mg/dL (0.6-1.3); MAGNESIUM - SERUM 2.2 mg/dL (1.8-2.4); POTASSIUM - SERUM 3.4 mmol/L (3.5-5.1)
[2018-07-01 09:15] VITALS: BP 173/84
[2018-07-01 11:35] LABS: T4 THYROXIN - FREE 2.24 ng/dL (0.76-1.46)
--- NOTE | 2018-07-01 12:12 | NUR ---
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 PROVIDE PRESCRIBED MEDS. THE PATIENT USES A WALKER TO AMBULATE. THIS MORNING SHE DID TAKE HER MEDICATIONS AND EXPLAINED TO HER WHAT EACH ONE IS. CONTINUE POC.
[2018-07-01 20:40] VITALS: BP 170/79
--- NOTE | 2018-07-02 00:53 | NUR ---
PATIENT IS VERY CONFUSED, COMPLIANT WITH MEDS, HAS TO BE REDIRECTED, NO ADVERSE SIDE EFFECTS NOTED. WILL FOLLOW POC
[2018-07-02 06:05] LABS: BASOPHILS 0.2 % (0-2); EOSINOPHILS 2.8 % (0-7); HEMOGLOBIN 12.2 g/dL (12-16); IMMATURE GRANULOCYTES 0.4 % (0-5); LYMPHOCYTES 16.4 % (15-50); MCH 30.8 pg (26.0-34.0); MCV 93.4 fL (80.0-100.0); MEAN PLATELET VOLUME 10.5 fL (7.4-10.4); MONOCYTES 11.8 % (2-11); NEUTROPHILS 68.4 % (40-80); RBC 3.96 10x6/uL (4.00-5.40); RDW 12.3 % (11.5-14.5); WBC 8.5 10x3/uL (4.8-10.8)
[2018-07-02 06:08] LABS: PLATELET COUNT 132 10x3/uL (130-400)
[2018-07-02 06:21] LABS: ALBUMIN 2.6 g/dL (3.4-5.0); ANION GAP 12.5 mmol/L (8-16); BILIRUBIN - TOTAL 0.2 mg/dL (0.2-1.3); CALCIUM 8.1 mg/dL (8.5-10.1); CARBON DIOXIDE 26.3 mmol/L (21.0-32.0); CREATININE - SERUM 1.1 mg/dL (0.6-1.3); POTASSIUM - SERUM 3.8 mmol/L (3.5-5.1); PROTEIN - SERUM 5.9 g/dL (6.4-8.2)
[2018-07-02 08:00] VITALS: BP 137/74
[2018-07-02 12:18] LABS: APPEARANCE CLEAR (CLEAR); BILIRUBIN NEGATIVE (NEGATIVE); COLOR YELLOW (YELLOW); GLUCOSE NEGATIVE (NEGATIVE); KETONE NEGATIVE (NEGATIVE); NITRITE NEGATIVE (NEGATIVE); PROTEIN 1+ mg/dL (NEGATIVE); UROBILINOGEN NORMAL (NORMAL)
[2018-07-02 12:19] LABS: AMORPHOUS SEDIMENT <1+ /lpf (NONE SEEN); BACTERIA MODERATE /hpf (NONE SEEN); EPITHELIAL CELLS 0-5 /hpf (0-5); MUCUS <1+ /lpf (NONE SEEN)
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
--- NOTE | 2018-07-02 12:52 | PN ---
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 By her report, she has been on Lexapro, Seroquel, and Ativan until recently. Her daughter feels that she can no longer take care of her at home and placement is proceeding. Nursing report patient is calm and appropriate, confused at times. She slept 9 hours last night. OBJECTIVE: VITAL SIGNS: 98.4, 73, 20, 173/84, and 98%. ASSESSMENT: Unchanged. PLAN: We will proceed with detoxification from Ativan. She is currently on Librium 25 b.i.d., tomorrow we will decrease it as her vital signs have been stable, decrease it to once a day times several days and then discontinue. Case discussed with nursing. Chart was reviewed and the patient interviewed. TRANSINT:[id number] Voice Confirmation ID: [id number] DOCUMENT ID: [id number] JACKIE PERKINS MD at 1252 CC: [id number] DICTATION DATE: 07/01/18 1434 SANIPRACTIC PHYSICIAN: 07/01/182127 ADM IN [place] [id number]
--- NOTE | 2018-07-02 13:04 | NUR ---
THE PATIENT IS AWAKE AND ALERT, SHE SAYS SHE FEELS BETTER TODAY. SHE IS NOT JITTERY AND SHE IS NOT HAVING TREMORS. SHE USES A WALKER TO AMBULATE AND SHE DOES WELL. PROVIDE PRESCRIBED MEDS. THE PATIENT IS COMPLIANT WITH MEDS. CONTINUE POC.
--- NOTE | 2018-07-02 17:07 | NUR ---
Patient extremely hyper-verbal and has talked the entire shift non-stop. It appears that patient enjoys instigating discord among the other patients, constantly complaining and attempting to get the others dissatisfied with unit rules. Also, has grandiose stories that she tells to other patients.
[2018-07-02 20:52] VITALS: BP 160/81
--- NOTE | 2018-07-02 21:36 | NUR ---
PATIENT IS HYPERVERBAL THIS EVENING, SHE IS SWITCHING FROM ONE SUBJECT TO ANOTHER, SHE IS HUGGING RESIDENTS. COMPLIANT WITH MEDS, NO ADVERSE REACTION NOTED. WILL FOLLOW POC
[2018-07-03 07:00] LABS: HEMATOCRIT 41.8 % (36.0-48.0); HEMOGLOBIN 13.7 g/dL (12-16); MCH 30.6 pg (26.0-34.0); MCHC 32.8 g/dL (31.0-37.0); MCV 93.3 fL (80.0-100.0); MEAN PLATELET VOLUME 9.8 fL (7.4-10.4); PLATELET COUNT 294 10x3/uL (130-400); RBC 4.48 10x6/uL (4.00-5.40); RDW 12.3 % (11.5-14.5); WBC 6.4 10x3/uL (4.8-10.8)
[2018-07-03 07:11] LABS: ALBUMIN 3.1 g/dL (3.4-5.0); ANION GAP 10.5 mmol/L (8-16); BILIRUBIN - TOTAL 0.35 mg/dL (0.2-1.3); CALCIUM 8.7 mg/dL (8.5-10.1); CARBON DIOXIDE 28.1 mmol/L (21.0-32.0); CREATININE - SERUM 1.1 mg/dL (0.6-1.3); MAGNESIUM - SERUM 2.1 mg/dL (1.8-2.4); POTASSIUM - SERUM 3.6 mmol/L (3.5-5.1)
[2018-07-03 07:34] LABS: EOSINOPHILS 7 % (0-7); LYMPHOCYTES 17 % (15-50); MONOCYTES 9 % (2-11); NEUTROPHILS 65 % (40-80); PLATELET ESTIMATE NORMAL
[2018-07-03 07:43] VITALS: BP 137/92
--- NOTE | 2018-07-03 17:15 | NUR ---
ORIENTED TO HOSPITAL AND TIME WITH SOME CONFUSION.HYPER VERBAL.ENJOYS TALKING WITH PEERS.MANY C/0.AMBULATES WITH WALKER.COMPLIANT WITH STAFF AND MEDS.WILL CONTINUE WITH PLAN OF CARE,MONITOR FOR CHANGES AND SAFETY.
[2018-07-03 20:24] VITALS: BP 156/63
--- NOTE | 2018-07-04 03:07 | NUR ---
B) Smiling and happy, states she had a great day visiting with select female peers. Was sad, but now they made her happy, and made her feel good about herself. Socializing and talkative. Asking if the doctor can order her some medication to help her sleep and asking if the doctor would order that she could have some Ativan if she should need it. States she is afraid she may get shaky. Explained that a message would be relayed to her doctor, but for tonight she was given Librium. Did settle to sleep and has been sleeping well. I) Administer medications as ordered, offer 1:1 time to verbalize feelings and voice her concerns. Monitor for any changes in behavior. R) Pleasant, cooperative. P) Provide care as noted in plan of care.
[2018-07-04 07:29] VITALS: BP 143/72
[2018-07-04 07:59] LABS: BASOPHILS 0.5 % (0-2); EOSINOPHILS 3.3 % (0-7); HEMATOCRIT 37.1 % (36.0-48.0); HEMOGLOBIN 12.4 g/dL (12-16); IMMATURE GRANULOCYTES 0.1 % (0-5); LYMPHOCYTES 19.6 % (15-50); MCH 30.8 pg (26.0-34.0); MCHC 33.4 g/dL (31.0-37.0); MCV 92.3 fL (80.0-100.0); MEAN PLATELET VOLUME 9.7 fL (7.4-10.4); MONOCYTES 9.3 % (2-11); NEUTROPHILS 67.2 % (40-80); PLATELET COUNT 294 10x3/uL (130-400); RBC 4.02 10x6/uL (4.00-5.40); RDW 12.4 % (11.5-14.5); WBC 7.3 10x3/uL (4.8-10.8)
[2018-07-04 08:14] LABS: ALBUMIN 3.1 g/dL (3.4-5.0); ANION GAP 15.2 mmol/L (8-16); BILIRUBIN - TOTAL 0.23 mg/dL (0.2-1.3); CALCIUM 8.7 mg/dL (8.5-10.1); CARBON DIOXIDE 25.5 mmol/L (21.0-32.0); CREATININE - SERUM 0.9 mg/dL (0.6-1.3); POTASSIUM - SERUM 3.7 mmol/L (3.5-5.1); PROTEIN - SERUM 6.3 g/dL (6.4-8.2)
--- NOTE | 2018-07-04 10:00 | NUR ---
PATIENT IS ALERT TO SELF, BUT CONFUSION NOTED. CALM AND COOPERATIVE WITH ASSESSMENT AND CARE. MEDICATION COMPLIANT. REDIRECT AND REORIENT NEEDED. WILL CPOC.
--- NOTE | 2018-07-05 04:02 | NUR ---
B) Patient is alert and oriented to self, delusional, hyperverbal at times, and confused, I) Administered scheduled medications as ordered, monitored for safety R) Mediation compliant. pleasant and friendly toward staff this shift, P) Continue plan of care.
--- NOTE | 2018-07-05 06:47 | PN ---
PATIENT:SILVIA DEGROOT MEDICAL RECORD: [id number] LOCATION:[facility]112 ADMISSION DATE: 06/29/18 PROGRESS NOTE DATE OF SERVICE: 07/04/2018 SUBJECTIVE: The patient's case was discussed with staff. She has no new complaint. OBJECTIVE: The patient has pretty limited insight about her situation. She has had some level of agitation, but is not grossly disorganized. ASSESSMENT: No change in diagnoses. PLAN: I think the patient would benefit from a therapeutic trial of Depakote for her mood lability. I think looking at her situation, the relative benefit significantly outweighs the relative risk and I have discussed this with her in a pretty basic way and she is agreeable to trying this if it will help her with her mood lability. ASSESSMENT: 1. Dementia. 2. Alcohol abuse. PLAN: The patient will be started on Depakote as mentioned above. Long-term prognosis is guarded. It is my understanding that assisted living is going to be sought. TRANSINT:[id number] Voice Confirmation ID: [id number] DOCUMENT ID: [id number] ARMANDO DE LA TORRE MD at 0647 CC: [id number] DICTATION DATE: 07/04/18 174 TIRE REGROOVING MACHINE OPERATOR: 07/04/182008 ADM IN [place] [id number] [place] [address]
[2018-07-05 07:47] VITALS: BP 156/66
--- NOTE | 2018-07-05 11:45 | NUR ---
PATIENT IS ALERT AND ORIENTED, DELUSIONAL AND HYPERVERBAL AT TIMES. COMPLIANT WITH MEDICATIONS. SOCIALIZES WITH PEERS. WILL CONTINUE POC.
--- NOTE | 2018-07-06 03:14 | NUR ---
RECEIVED IN PATIENT ROOM. SITTING ON SIDE OF BED. CALM AND COOPERATIVE WITH CARE AND ASSESSMENT. NO SIGNS OF AGGRESSION. REDIRECT AND REORIENT NEEDED. RESTING IN BED WITH EYES CLOSED AT THIS TIME. CONTINUE PLAN OF CARE.
--- NOTE | 2018-07-06 09:00 | NUR ---
PATIENT IS AWAKE AND ALERT, WITH CONFUSION NOTED. CALM AND COOPERATIVE WITH CARE AND ASSESSMENT. SOCIALIZES WITH PEERS AND STAFF. CPOC.
[2018-07-06 09:06] VITALS: BP 150/78
--- NOTE | 2018-07-06 10:00 | NUR ---
Nutrition Follow Up: Chart reviewed. Noted pt had complaints of loose stool. Meds changed per MD. Pt is eating 91% meal avg on a regular diet. +BM 07/04/18. Meds and labs reviewed. Pt continues at low nutritional risk. RD following.
--- NOTE | 2018-07-06 13:51 | PN ---
PATIENT:SILVIA DEGROOT MEDICAL RECORD: [id number] LOCATION:K[facility] Rodriguez112 ADMISSION DATE: 06/29/18 PROGRESS NOTE DATE OF SERVICE: 07/05/2018 SUBJECTIVE: The patient's case was discussed with staff. She has no new complaint. OBJECTIVE: The patient has tolerated her initial dose of Depakote well. Obviously, it has not had an opportunity to help with her mood lability. She did sleep well last night, which is encouraging and she seems a little less hyperverbal today. ASSESSMENT: Senile dementia of the Alzheimer's type with behavioral disturbances. PLAN: Current medicines have been reviewed and will be maintained. Long-term prognosis is guarded. It is clear that the patient needs a significant amount of supervision and assistance. What is not entirely clear at this point is which setting would be the least restrictive that would meet these needs. TRANSINT:[id number] Voice Confirmation ID: [id number] DOCUMENT ID: [id number] ARMANDO DE LA TORRE MD at 1351 CC: [id number] DICTATION DATE: 07/05/18 07 LINEN KEEPER: 07/05/18 1109 ADM IN [place] [id number] [place] [address]
[2018-07-06 19:53] VITALS: BP 175/70
--- NOTE | 2018-07-06 20:38 | NUR ---
RECEIVED IN PATIENT ROOM. GETTING READY FOR BED. CALM AND COOPERATIVE WITH CARE AND ASSESSMENT. PATIENT IS HYPERVERBAL. NO SIGNS OF AGGRESSION. MED COMPLIANT. REDIRECT AND REORIENT NEEDED. SITTING ON SIDE OF BED AT THIS TIME. CONTINUE PLAN OF CARE.
--- NOTE | 2018-07-07 08:09 | NUR ---
B) THE PATIENT HAS AN ELEVATED BP THIS AM 170/107, RECHECKED IT MANUALLY, IT IS 130/90. THE PATIENT SAID "OH I GOT MYSELF ALL WORKED UP ABOUT MY CLOTHES, I'LL BE OK AFTER I EAT, I JUST DON'T WANT ON BLOOD PRESSURE MEDICINE." THE PATIENT IS LESS HYPERVERBAL, SHE IS SOCIABLE. I) PROVIDE PRESCRIBED MEDS, REDIRECT NEEDED. P) CONTINUE POC.
[2018-07-07 08:23] VITALS: BP 130/90
[2018-07-07 20:20] VITALS: BP 158/68
--- NOTE | 2018-07-08 04:29 | NUR ---
B) Patient is alert and oriented to person, pleasant and friendly toward staff and peers, very social I) Administered scheduled medications as ordered, monitored for safety R) Mediation compliant, follows instructions, P) Continue plan of care.
--- NOTE | 2018-07-08 07:49 | NUR ---
THE PATIENT IS AWAKE AND ALERT, SHE IS PLEASANT, DID LET HER KNOW WE NEED TO GET A URINE SAMPLE FROM HER AND SHE SAID "OK". SHE IS TALKING WITH OTHER PATIENTS AND TALKS NONSTOP. PROVIDE PRESCRIBED MEDS, REDIRECT TO UNIT MILIE[facility]. CONTINUE POC.
[2018-07-08 09:26] VITALS: BP 144/67
[2018-07-08 10:47] LABS: APPEARANCE CLEAR (CLEAR); BILIRUBIN NEGATIVE (NEGATIVE); COLOR YELLOW (YELLOW); GLUCOSE NEGATIVE (NEGATIVE); KETONE NEGATIVE (NEGATIVE); NITRITE NEGATIVE (NEGATIVE); PROTEIN NEGATIVE (NEGATIVE); SPECIFIC GRAVITY 1.015 (1.005-1.020); UROBILINOGEN NORMAL (NORMAL)
--- NOTE | 2018-07-08 14:13 | PN ---
PATIENT:SILVIA DEGROOT MEDICAL RECORD: [id number] LOCATION:[facility]112 ADMISSION DATE: 06/29/18 PROGRESS NOTE DATE OF SERVICE: 07/06/2018 SUBJECTIVE: The patient's case was discussed with staff. She has no new complaint. OBJECTIVE: The patient is in good behavioral control with very limited insight about her condition. She tolerates her medicines well. ASSESSMENT: No change in diagnoses. PLAN: Current medicines and therapies have been reviewed and will be maintained. Long-term prognosis is guarded. TRANSINT:[id number] Voice Confirmation ID: [id number] DOCUMENT ID: [id number] ARMANDO DE LA TORRE MD at 1413 CC: [id number] DICTATION DATE: 07/06/18 1545 CONTENT DESIGNER: 07/06/18 2253 ADM IN [place] [id number] [place] [address]
--- NOTE | 2018-07-08 14:13 | PN ---
PATIENT:SILVIA DEGROOT MEDICAL RECORD: [id number] LOCATION:[facility]112 ADMISSION DATE: 06/29/18 PROGRESS NOTE DATE OF SERVICE: 07/07/2018 SUBJECTIVE: The patient's case was discussed with staff. She has no new complaint. OBJECTIVE: The patient is less verbal. She is tolerating the Depakote well. She is mostly oriented only being mistaken slightly about the date. She certainly denies intent to harm herself or others. She says she is no longer going to drive, but she also says that she refuses to go to the [facility] and is insisting that she go home. ASSESSMENT: Senile dementia of the Alzheimer's type with behavioral disturbances. PLAN: Brief supportive and educational interventions were made. Long-term prognosis is guarded. TRANSINT:[id number] Voice Confirmation ID: [id number] DOCUMENT ID: [id number] ARMANDO DE LA TORRE MD at 1413 CC: [id number] DICTATION DATE: 07/07/18 1502 STRINGS TEACHER: 07/07/18 1524 ADM IN [facility] [address] [place] [address]
[2018-07-08 19:20] VITALS: BP 173/70
--- NOTE | 2018-07-09 04:01 | NUR ---
B) Continues to socialize with select peers. States peers around are helping her stay in a good mood. Questioning why she cannot go home when she is eating, taking all of her medications and complying with all the rules and yet "I am still here." I) Administer medications as ordered, monitor for changes in behvaior, maintain unit safety. R) Compliant with medications. Talkative, hyperverbal, anxious. P) Monitor per plan of care.
[2018-07-09 10:04] VITALS: BP 171/81
--- NOTE | 2018-07-09 10:47 | PN ---
PATIENT:SILVIA DEGROOT MEDICAL RECORD: [id number] LOCATION:[facility]112 ADMISSION DATE: 06/29/18 PROGRESS NOTE DATE OF SERVICE: 07/08/2018 SUBJECTIVE: The patient's case was discussed with staff. She has no new complaint. OBJECTIVE: The patient is significantly less labile. She has tolerated her initial doses of Depakote well. ASSESSMENT: Senile dementia of the Alzheimer's type with behavioral disturbances. PLAN: The patient will have a Depakote level checked. I anticipate it is going to be subtherapeutic, but I also anticipate that it is distinctly possible that I will not increase the dose since I am going to use the amount that is therapeutically effective as opposed to clinically in the range based on a laboratory value. TRANSINT:[id number] Voice Confirmation ID: [id number] DOCUMENT ID: [id number] ARMANDO DE LA TORRE MD at 1047 CC: [id number] DICTATION DATE: 07/08/18 1600 BRIGHT CUTTER: 07/08/18 2320 ADM IN [place] [id number] [place] [address]
--- NOTE | 2018-07-09 11:10 | NUR ---
B) THE PATIENT CONTINUES TO TALK AND TALK, SHE IS ORIENTED TO PERSON AND PLACE, SHE HAS POOR INSIGHT INTO HER SITUATION. SHE IS NOT HYPER WHEN SHE FIRST CAME. EVERY DAY SHE ASKS ABOUT HER MEDS AND WANTS TO KNOW WHAT THEY ARE FOR AND I TELL HER. WHEN I TELL HER ABOUT HER DEPAKOTE SHE LAUGHS AND SAYS "THEY'VE BEEN TRYING FOR YEARS TO GET ME TO BE CALM, IF I GET ANY CALMER, HAHAHA" I) PROVIDE PRESCRIBED MEDS. R)THE PATIENT IS COMPLIANT WITH MEDS. P) CONTINUE POC.
[2018-07-09 20:00] VITALS: BP 155/78
--- NOTE | 2018-07-10 02:42 | NUR ---
B) patient is alert and oriented to person and place with little insight as to why she is here, I) Administered scheduled medications as ordered, monitored for safety R) Mediation compliant, social with peers, very talkative, P) Continue plan of care.
--- NOTE | 2018-07-10 09:44 | PN ---
PATIENT:SILVIA DEGROOT MEDICAL RECORD: [id number] LOCATION:[facility] ADMISSION DATE: 06/29/18 PROGRESS NOTE DATE OF SERVICE: 07/09/2018 SUBJECTIVE: The patient's case was discussed with staff. She has no new complaint. OBJECTIVE: The patient has a therapeutic Depakote level of 58, which is therapeutic, but low therapeutic. I am surprised the level was this high, but it is acceptable and the clinical response has been reasonable. ASSESSMENT: Senile dementia of the Alzheimer's type with behavioral disturbances. PLAN: The patient is taking thyroid medication. She had an elevated TSH on admission. It is unclear if she had been taking her Synthroid consistently. I am going to leave management of her thyroid condition to her family practice doctor. She will be monitored for other changes. I anticipate she can be transitioned out of the hospital soon if an appropriate setting can be arranged where she can have her needs met. TRANSINT:[id number] Voice Confirmation ID: [id number] DOCUMENT ID: [id number] ARMANDO DE LA TORRE MD at 0944 CC: [id number] DICTATION DATE: 07/09/18 1058 WET WASHER MACHINE: 07/09/18 1119 ADM IN [place] [place] [address]
[2018-07-10 15:58] VITALS: BP 146/68
--- NOTE | 2018-07-10 16:58 | NUR ---
IS ALERT AND ORIENTED BUT HAS LITTLE INSITE IN TO WHY SHE IS HERE.ENJOYS TALKING WITH STAFF AND PEERS,HYPERVERBAL.COMPLIANT WITH STAFF AND MEDS.WILL CONTINUE WITH PLAN OF CARE,MONITOR FOR CHANGES AND SAFETY.
[2018-07-10 20:21] VITALS: BP 157/62
--- NOTE | 2018-07-10 21:26 | NUR ---
RECEIVED IN DAYROOM. SITTING IN CHAIR AND SOCIZALIZING WITH PEERS. CALM AND COOPERATIVE WITH CARE AND ASSESSMENT. VERY HYPERVERBAL. GRANDIOSE DELUSIONS. REDIRECT AND REORIENT NEEDED. CONTINUES TO SOCIALIZE AT THIS TIME. CONTINUE PLAN OF CARE.
[2018-07-11 08:54] VITALS: BP 148/76
--- NOTE | 2018-07-11 09:53 | NUR ---
PT IS ALERT AND ORIENTED X 2. CALM AND COOPERATIVE WITH ASSESSMENT. REDIRECT AND REORIENT NEEDED. NO AGGRESSION NOTED. MED COMPLIANT. FALL PRECAUTIONS IN PLACE. WILL CONTINUE TO MONITOR Q 15 MINUTES FOR SAFETY. WILL CPOC.
--- NOTE | 2018-07-11 15:21 | PN ---
PATIENT:SILVIA DEGROOT MEDICAL RECORD: [id number] LOCATION:[facility] ADMISSION DATE: 06/29/18 PROGRESS NOTE DATE OF SERVICE: 07/10/2018 SUBJECTIVE: The patient's case was discussed with staff. She has no new complaint. OBJECTIVE: The patient is in good behavioral control. She is much less hyperverbal and much better organized in her thought processes. She unfortunately does have clear and significant evidence of cognitive impairment. ASSESSMENT: Senile dementia of the Alzheimer's type with behavioral disturbances. PLAN: Brief supportive and educational interventions were made. Current medicines and therapies have been reviewed and will be maintained. TRANSINT:[id number] Voice Confirmation ID: [id number] DOCUMENT ID: [id number] ARMANDO DE LA TORRE MD at 1521 CC: [id number] DICTATION DATE: 07/10/18 0952 ESTHETICS INSTRUCTOR: 07/10/18 1222 ADM IN [id number] [place] [address]
--- NOTE | 2018-07-11 21:50 | NUR ---
RECEIVED IN DAYROOM. SOCIALIZING WITH STAFF AND PEERS. CALM AND COOPERATIVE WITH CARE AND ASSESSMENT. HYPERVERBAL AT TIMES. REDIRECT AND REORIENT NEEDED. RESTING IN BED WITH EYES CLOSED AT THIS TIME. CONTINUE PLAN OF CARE.
[2018-07-11 22:26] VITALS: BP 158/68
[2018-07-12 08:01] VITALS: BP 190/69
--- NOTE | 2018-07-12 09:51 | NUR ---
Nutrition Follow Up: Chart reviewed. Pt is eating 83% meal avg on a regular diet. +BM 07/10/18. Meds and labs reviewed. Pt continues at low nutritional risk. RD following.
--- NOTE | 2018-07-12 11:36 | PN ---
PATIENT:SILVIA DEGROOT MEDICAL RECORD: [id number] LOCATION:[facility]112 ADMISSION DATE: 06/29/18 PROGRESS NOTE DATE OF SERVICE: 07/11/2018 SUBJECTIVE: The patient's case was discussed with staff. She has no new complaint. OBJECTIVE: The patient is tolerating her medications well. She actually had a therapeutic Depakote level, which is surprising given the low dose and it seems to be effective. She is no longer hyperverbal. She is much more organized in her thought processes, although she continues to be quite impaired cognitively. She is wanting to go back to her house and live. She has a daughter who wants her to go to assisted living. ASSESSMENT Senile dementia of the Alzheimer's type with behavioral disturbances. PLAN: Current medicines and therapies have been reviewed and will be maintained. Long-term prognosis is guarded. TRANSINT:[id number] Voice Confirmation ID: [id number] DOCUMENT ID: [id number] ARMANDO DE LA TORRE MD at 1136 CC: [id number] DICTATION DATE: 07/11/18 1544 NEWS ASSISTANT: 07/11/18 1638 ADM IN [facility] [address] [place] [address]
--- NOTE | 2018-07-12 13:50 | NUR ---
PT IS ALERT AND ORIENTED X 2. CALM AND COOPERATIVE WITH ASSESSMENT. NO AGGRESSION NOTED. MED COMPLIANT. REDIRECT AND REORIENT NEEDED. WILL CPOC.
[2018-07-12 20:14] VITALS: BP 133/56
--- NOTE | 2018-07-12 22:27 | NUR ---
RECEIVED IN DAYROOM. SITTING IN CHAIR AND SOCIALIZING WITH PEERS. HYPERVERBAL. CALM AND COOPERATIVE WITH CARE AND ASSESSMENT. NO GRANDIOSE STATEMENTS MADE. REDIRECT AND REORIENT NEEDED. RESTING IN BED WITH OPEN AT THIS TIME. CONTINUE PLAN OF CARE.
[2018-07-13 08:00] VITALS: BP 138/60
--- NOTE | 2018-07-13 14:15 | PN ---
PATIENT:SILVIA DEGROOT MEDICAL RECORD: [id number] LOCATION:[facility] ADMISSION DATE: 06/29/18 PROGRESS NOTE DATE OF SERVICE: 07/12/2018 SUBJECTIVE: The patient's case was discussed with staff. She has no new complaint. OBJECTIVE: The patient is partially oriented and has severe impairment of her short-term memory. She is not agitated or wanting to harm herself. She is very limited in her insight. I discussed going to the assisted living center with her and she at this point at least is agreeable that she would be willing to do that. ASSESSMENT: 1. Senile dementia of the Alzheimer's type with behavioral disturbances. 2. Bipolar disorder. PLAN: Current medicines will be maintained. Long-term prognosis is guarded. TRANSINT:[id number] Voice Confirmation ID: [id number] DOCUMENT ID: [id number] ARMANDO DE LA TORRE MD at 1415 CC: [id number] DICTATION DATE: 07/12/18 171 CORN DETASSELER: 07/12/18 2030 ADM IN [place] [id number] [place] [id number]
--- NOTE | 2018-07-13 14:29 | NUR ---
PT IS ALERT AND ORIENTED X 3. PT IS SITTING IN DAYROOM WITH PEERS SOCIALIZING. CALM AND COOPERATIVE WITH ASSESSMENT. REDIRECT AND REORIENT NEEDED. NO AGGRESSION NOTED. MED COMPLIANT. WILL CPOC.
--- NOTE | 2018-07-13 20:36 | NUR ---
RECEIVED IN DAYROOM. SITTING IN CHAIR AND SOCIALIZING WITH PEERS. CALM AND COOPERATIVE WITH CARE AND ASSESSMENT. HYPERVERBAL. GRANDIOSE DELUSIONS. REDIRECT AND REORIENT NEEDED. CONTINUES TO SIT AND SOCIALIZE AT THIS TIME. CONTINUE PLAN OF CARE.
[2018-07-14 07:13] VITALS: BP 127/50
[2018-07-14 08:21] VITALS: BP 135/63
--- NOTE | 2018-07-14 16:09 | PN ---
PATIENT:SILVIA DEGROOT MEDICAL RECORD: [id number] LOCATION:[facility]112 ADMISSION DATE: 06/29/18 PROGRESS NOTE DATE OF SERVICE: 07/13/2018 SUBJECTIVE: The patient's case was discussed with staff. She has no new complaint. OBJECTIVE: The patient denies intent to harm herself or others. She is in good behavioral control with poor insight about her situation. ASSESSMENT: No change in diagnoses. PLAN: The patient has a therapeutic Depakote level from a few days ago. I do not see a reason to check another level today. I think follow up should be with mental health as well as her primary care physician and that will be arranged. TRANSINT:[id number] Voice Confirmation ID: [id number] DOCUMENT ID: [id number] ARMANDO DE LA TORRE MD at 1609 CC: [id number] DICTATION DATE: 07/13/18 1446 PAPER FEEDER: 07/13/18 1507 ADM IN [place] [place] [address]
--- NOTE | 2018-07-14 16:16 | NUR ---
ORIENTED WITH POOR INSITE TO WHY SHE IS HERE.COMPLIANT WITH STAFF AND MEDS.ENJOYS VISITING WITH PEERS AND STAFF.HELPFUL WITH PEERS.WILL CONTINUE WITH PLAN OF CARE,MONITOR FOR CHANGES AND SAFETY.
[2018-07-14] MEDS ORDERED: LISINOPRIL10 MG PO (16:53)
[2018-07-14] MEDS ORDERED: Aricept PO (16:53)
[2018-07-14] MEDS ORDERED: COREG6.25 MG PO (16:53)
[2018-07-14] MEDS ORDERED: LEXAPRO20 MG PO (16:54)
[2018-07-14] MEDS ORDERED: Depakote DR PO (16:54)
[2018-07-14] MEDS ORDERED: VITAMIN B-121000 MCG PO (16:55)
[2018-07-14] MEDS ORDERED: FOLIC ACID1 MG PO (16:55)
[2018-07-14 20:22] VITALS: BP 168/64
--- NOTE | 2018-07-15 03:17 | NUR ---
B) Patient is alert and oriented to person, calm and cooperative, I) Administered scheduled medicaions as ordered, R) Medication compliant, no floyd over the last few days, P) Continue plan of care.
[2018-07-15 08:59] VITALS: BP 117/54
--- NOTE | 2018-07-15 10:15 | NUR ---
Faxed d/c order and med list to [place]. Spoke to [place] and provided report, did make a hard copy to send with the ready mix truck driver. The patient is wearing her clothes she brought.
--- NOTE | 2018-07-15 12:50 | NUR ---
The patient c/o neck pain, she says she is nervous because she said she saw a patient go after the activity therapist. Did call Alma Kang APN and get an order for Tylenol, see. MAR. She rates her pain at 10/10.
--- NOTE | 2018-07-15 13:20 | NUR ---
The patient says her pain is less now, about a 2/10.
--- NOTE | 2018-07-15 15:00 | NUR ---
Trudy is here to pick the patient up and she is pleasant and ready to go. She came with only the clothes on and she left with the same clothes, provided a hard copy of the d/c orders and medication list to the construction driver.
--- NOTE | 2018-07-15 15:40 | PN ---
PATIENT:SILVIA DEGROOT MEDICAL RECORD: [id number] LOCATION:[facility] ADMISSION DATE: 06/29/18 PROGRESS NOTE DATE OF SERVICE: 07/14/2018 SUBJECTIVE: The patient's case was discussed with staff. She has no new complaint. OBJECTIVE: The patient denies intent to harm herself or others. She is tolerating her medications well. She is wanting to go home and thinks that she can stay at home as long as she just has the alarm system fixed. Her daughter says that it is not anything close to being accurate indicating that the patient has not been able to set the alarm properly and it has been evaluated and there is nothing wrong with it. ASSESSMENT: Senile dementia of the Alzheimer's type with behavioral disturbances. PLAN: The patient will be transitioned out of the hospital tomorrow. She is going to go to [facility]. I have discussed the situation with her daughter and the patient is willing to go but does not think it is necessary. TRANSINT:[id number] Voice Confirmation ID: [id number] DOCUMENT ID: [id number] ARMANDO DE LA TORRE MD at 1540 CC: [id number] DICTATION DATE: 07/14/18 1658 METAL ANNEALER: 07/14/18 2306 ADM IN [place] [id number] [place] [id number]
--- NOTE | 2018-07-16 11:00 | PN ---
PATIENT:SILVIA DEGROOT MEDICAL RECORD: [id number] LOCATION:[facility] ADMISSION DATE: 06/29/18 PROGRESS NOTE DATE OF SERVICE: 07/15/2018 SUBJECTIVE: The patient's case was discussed with staff. She has no new complaint. OBJECTIVE: The patient is fully oriented and has a depressed mood. She is sad about going to assisted living center, but after talking with her multiple times about this she has resolved that it is best at least for the time being. She has no evidence of acute or direct dangerousness. ASSESSMENT: Senile dementia of the Alzheimer's type with behavioral disturbances. PLAN: The patient will be transitioned out of the hospital today. Her long-term prognosis is guarded. TRANSINT:[id number] Voice Confirmation ID: [id number] DOCUMENT ID: [id number] ARMANDO DE LA TORRE MD at 1100 CC: [id number] DICTATION DATE: 07/15/18 1608 SAP BUSINESS INTELLIGENCE CONSULTANT: 07/15/18 2351 DIS IN 07/15/18 [place] [id number] [place] [address]
--- NOTE | 2018-07-17 10:05 | DS ---
PATIENT:SILVIA DEGROOT :36 MEDICAL RECORD: [id number] DISCHARGE SUMMARY ADMISSION DATE: 06/29/18 DISCHARGE DATE: 07/15/18 IDENTIFYING DATA: The patient is 78 years old and she was admitted to the hospital secondary to agitated and disruptive behavior. She has been drinking a fair amount. She was confused. She was not caring for herself and she was very agitated at times. HOSPITAL COURSE: The patient was admitted to the hospital and fully evaluated from both a medical, psychological, and social standpoint. It was clear that she had dementia, it was clear that she was also an abuser of alcohol, although she showed no evidence of physical alcohol withdrawal symptoms. She clearly had a fair amount of depression and some mood lability, which was effectively treated with a mood stabilizer. She showed improvement through the course of her hospitalization and was subsequently transitioned to an assisted living center. DISCHARGE DIAGNOSES: AXIS I: Senile dementia of the Alzheimer's type, major depressive disorder, moderate severity, alcohol abuse. AXIS II: None. AXIS III: None. AXIS IV: Moderate. AXIS V: Global assessment of functioning is 40. PLAN: At the time of discharge, the patient was not acutely dangerous to herself or others. She was tolerating her medicines well. Her long-term prognosis is guarded. TRANSINT:[id number] Voice Confirmation ID: [id number] DOCUMENT ID: [id number] ARMANDO DE LA TORRE MD at 1005 CC: [id number] DICTATION DATE: 07/16/18 1133 INSULATION SPRAYER: 07/17/18 0631 DIS IN 07/15/18 [place] [id number] [place] [address]
== END 2018-07-15 15:15 | disposition home or self-care (01) | DRG 57 ==
LOC: D.ER 09:57 → D.PSYCH 15:58 → D.EDHOLD 15:58 → D.PSYCH 19:09
PROVIDERS: Emergency Medicine; Family Medicine; ADMIT Psychiatry & Neurology Psychiatry; ATTEND Psychiatry & Neurology Psychiatry
DX: G30.1 Alzheimer's disease with late onset (principal); F02.81 Dementia in other diseases classified elsewhere, unspecified severity, with behavioral disturbance; F32.1 Major depressive disorder, single episode, moderate; N39.0 Urinary tract infection, site not specified; F10.10 Alcohol abuse, uncomplicated; F41.9 Anxiety disorder, unspecified; K59.00 Constipation, unspecified; E05.00 Thyrotoxicosis with diffuse goiter without thyrotoxic crisis or storm; E87.6 Hypokalemia; I10 Essential (primary) hypertension; E53.8 Deficiency of other specified B group vitamins

== ENCOUNTER → 2018-09-14 09:16 | Outpatient (CLI) | payer MEDICARE, OTHER ==
[2018-06-30 15:34] VITALS: BMI 29.2
[~2018-09-14 09:16] MED LIST changes: +Aricept PO; +COREG6.25 MG PO; +Depakote DR PO; +FOLIC ACID1 MG PO; +LEXAPRO20 MG PO; +LISINOPRIL10 MG PO; +VITAMIN B-121000 MCG PO
== END | disposition home or self-care (01) ==
LOC: D.LABREF 09:16
PROVIDERS: ATTEND Family Medicine
DX: G30.9 Alzheimer's disease, unspecified (principal); E03.9 Hypothyroidism, unspecified; I10 Essential (primary) hypertension; F32.9 Major depressive disorder, single episode, unspecified

== ENCOUNTER → 2018-10-05 17:53 | Outpatient (CLI) | payer MEDICARE, OTHER ==
[2018-06-30 15:34] VITALS: BMI 29.2
== END | disposition home or self-care (01) ==
LOC: D.LABREF 17:53
PROVIDERS: ATTEND Family Medicine
DX: E03.9 Hypothyroidism, unspecified (principal)

== ENCOUNTER 2019-10-19 14:42 | Inpatient (IN) | payer MEDICARE ==
[2019-10-19 15:52] LABS: BASOPHILS 0.7 % (0-2); EOSINOPHILS 2.7 % (0-7); HEMATOCRIT 36.9 % (36.0-48.0); HEMOGLOBIN 12.3 g/dL (12-16); IMMATURE GRANULOCYTES 0.1 % (0-5); LYMPHOCYTES 22.6 % (15-50); MCH 31.9 pg (26.0-34.0); MCHC 33.3 g/dL (31.0-37.0); MCV 95.8 fL (80.0-100.0); MEAN PLATELET VOLUME 9.1 fL (7.4-10.4); MONOCYTES 11.7 % (2-11); NEUTROPHILS 62.2 % (40-80); PLATELET COUNT 251 10x3/uL (130-400); RBC 3.85 10x6/uL (4.00-5.40); RDW 12.5 % (11.5-14.5); WBC 7.1 10x3/uL (4.8-10.8)
[2019-10-19 16:05] LABS: ANION GAP 7.4 mmol/L (8-16); CALCIUM 8.7 mg/dL (8.5-10.1); CARBON DIOXIDE 29.3 mmol/L (21.0-32.0); CREATININE - SERUM 1.1 mg/dL (0.6-1.3); POTASSIUM - SERUM 3.7 mmol/L (3.5-5.1)
[2019-10-19 16:19] LABS: ALBUMIN 3.2 g/dL (3.4-5.0); BILIRUBIN - TOTAL 0.3 mg/dL (0.2-1.3); PROTEIN - SERUM 6.4 g/dL (6.4-8.2); THYROID STIMULATING HORMONE 0.01 uIU/mL (0.36-3.74)
--- NOTE | 2019-10-19 18:00 | NUR ---
RECEIVED PT TO ROOM AT THIS TIME.
--- NOTE | 2019-10-19 18:31 | NUR ---
URINE OBTAINED AND SENT TO LAB
[2019-10-19 18:32] VITALS: BP 189/67
[2019-10-19 18:32] LABS: BILIRUBIN NEGATIVE (NEGATIVE); GLUCOSE NEGATIVE (NEGATIVE); KETONE NEGATIVE (NEGATIVE); NITRITE NEGATIVE (NEGATIVE); SPECIFIC GRAVITY 1.005 (1.005-1.020); UROBILINOGEN NORMAL (NORMAL)
[2019-10-19 18:42] LABS: UDS - AMPHET NEGATIVE QUAL (NEGATIVE); UDS - BARB NEGATIVE QUAL (NEGATIVE); UDS - BENZO NEGATIVE QUAL (NEGATIVE); UDS - COCAINE NEGATIVE QUAL (NEGATIVE); UDS - OPIATE NEGATIVE QUAL (NEGATIVE); UDS - PCP NEGATIVE QUAL (NEGATIVE); UDS - THC NEGATIVE QUAL (NEGATIVE)
[2019-10-19] MEDS ORDERED: AUGMENTIN 875-11 TAB PO (19:45)
[2019-10-19] MEDS ORDERED: MELATONIN10 M1 PO (22:52)
[2019-10-19 23:07] VITALS: BP 169/79; BMI 23.2
--- NOTE | 2019-10-20 00:17 | NUR ---
PATIENT ADMITTED FROM ER AT 2230 BROUGHT IN WHEELCHAIR ACCOMPANIED BY ER STAFF. REPORT RECEIVED THAT THIS PATIENT WAS ORIENTED TO SELF ONLY. SHE IS ORIENTED TO SELF, TIME, PLACE AND SITUATION, SHE IS AWARE OF THE HOLIDAY THAT RECENTLY PASSED, SHE KNOWS THE PRESIDENT, SHE KNOWS THE CITY THAT SHE LIVES IN SHE KNOWS HER DATE OF AND IS ABLE TO TELL ALL OF THE THINGS WITHOUT HESITATION AND IS ALSO ABLE TO RECALL INFORMATION. SHE WAS ORIENTED TO UNIT, UNIT RULES, HER ROOM AND CALL [facility]. PATIENT IS ANXIOUS FOR BEING HERE AGAINST HER DESIRE THEREFOR ATIVAN PO PRN WAS GIVEN TO HELP HER CALM DOWN.
[2019-10-20 07:27] LABS: BASOPHILS 0.4 % (0-2); EOSINOPHILS 2.2 % (0-7); HEMATOCRIT 36.2 % (36.0-48.0); HEMOGLOBIN 11.8 g/dL (12-16); IMMATURE GRANULOCYTES 0.1 % (0-5); LYMPHOCYTES 18.1 % (15-50); MCH 31.8 pg (26.0-34.0); MCHC 32.6 g/dL (31.0-37.0); MCV 97.6 fL (80.0-100.0); MEAN PLATELET VOLUME 9.1 fL (7.4-10.4); MONOCYTES 12.3 % (2-11); NEUTROPHILS 66.9 % (40-80); PLATELET COUNT 236 10x3/uL (130-400); RBC 3.71 10x6/uL (4.00-5.40); RDW 12.6 % (11.5-14.5); WBC 7.4 10x3/uL (4.8-10.8)
[2019-10-20 07:59] LABS: CHOL - HDL RATIO 3.1 ratio (2.3-4.1); LDL-HDL RATIO 1.8 ratio (1.5-3.5); THYROID STIMULATING HORMONE 0.01 uIU/mL (0.36-3.74); VALPROIC ACID (DEPAKOTE) 16.4 ug/mL (50.0-100.0)
[2019-10-20 09:06] VITALS: Wt 60.9 kg
--- NOTE | 2019-10-20 11:42 | NUR ---
PT IS RUBBING HER EYES, DEEP BREATHING AND VERY ANXIOUS. PT STATES THAT AT HOME SHE TAKES ATIVAN SCHEDULED AT HOME. NURSE ADMINISTED ATIVAN 0.5 MG PO FOR ANXIETY. WILL REASSES FOR EFFECTIVENESS.
--- NOTE | 2019-10-20 12:42 | NUR ---
PRN IS EFFECTIVE AT THIS TIME.
--- NOTE | 2019-10-20 13:20 | NUR ---
PT IS IN W/C PROPELLING SELF. PT IS CONFUSED AND DISORIENTED TO SITUATION. PT IS VERY ANXIOUS AND WORKS SELF UP WITH CRYING AND HEAVY BREATHING. STAFF REDIRECTS BEHAVIOR WHEN NEEDED. REDIRECT AND REORIENT NEEDED. PT WAS REQUESTING MEDS ACCORDING TO PT SHE HAD NOT HAD MEDS SINCE 2 DAYS AGO. NURSE EXPLAINED THAT THE DOCTOR WAS COMING IN TO SEE HER AND HER MEDS WOULD BE RESTARTED. VERBALIZIED UNDERSTANDING. PT COMPLIANT WITH MEDS. WILL CONT PLAN OF CARE. CHAIR ALARM IN PLACE AND ACTIVE.
[2019-10-20 14:10] VITALS: BP 146/78
--- NOTE | 2019-10-20 17:54 | NUR ---
The patient requested to call her Mother. Asked to call her daughter so that I may get the number. The patient called the daughter and told her to let Brenda know to put more food out for her animals and give her the new code to the security system. She may need to call ADT. Apparently the person on the other line was agreeing as the patient hung the phone up.
[2019-10-20 20:08] VITALS: BP 164/80
--- NOTE | 2019-10-20 20:43 | NUR ---
ATIVAN 0.5 MG PO GIVEN FOR ANXIETY, CRYING AND RESTLESS.
--- NOTE | 2019-10-20 21:45 | NUR ---
MEDICATION CALMED PATIENT AND SHE WENT TO SLEEP.
--- NOTE | 2019-10-21 04:05 | NUR ---
RECEIVED IN DAYROOM, SITTING WITH PEERS WATCHING TV. CALM AND COOPERATIVE WITH CARE AND ASSESSMENT. REDIRECT AND REORIENT NEEDED. MEDICATION COMPLIANT. CONTINUE POC.
[2019-10-21 07:14] LABS: RAPID PLASMA REAGIN Non Reactive (Non Reactive)
[2019-10-21 09:54] VITALS: BP 137/68
--- NOTE | 2019-10-21 10:14 | NUR ---
The patient is awake and alert, she knows her name, she told the nurse practitioner that she was jittery all night because she got her medications late. She says she does not know why she is here. She has poor insight into her situation. Provide prescribed meds. The patient is compliant with meds. She is [place]. Continue POC.
--- NOTE | 2019-10-21 10:40 | NUR ---
PT FIRST DOSE OF LIBRIUM GIVEN AT THIS TIME. PT TOLERATED MEDICATION AT THIS TIME.
--- NOTE | 2019-10-21 11:19 | PSY ---
PATIENT NAME:SILVIA DEGROOT MEDICAL RECORD: [id number] : 36 LOCATION:[facility] [address] ADMISSION DATE: 10/19/19 ACCOUNT: [id number] PSYCHIATRIC EVALUATION DATE OF EVALUATION: 10/20/19 IDENTIFYING DATA: Ms. Degroot is an 79-year-old female who was admitted to the unit via POA signed by her son on 10/19/2019. CHIEF COMPLAINT: Increased confusion and paranoia. HISTORY OF PRESENT ILLNESS: The patient was brought into the emergency services by EMS following a potential cat bite. Per the EMS, the patient does live alone in her house, which is very much unkempt. The patient reports that, Kelly, the nurse that comes every other week from Dr. Connolly noticed that she had a cat bite and told her to go into the clinic. The patient reports that she stayed at the clinic for over 10 hours and then got on this unit. The patient states she wants to leave and she has talked to her consumer attorney and that she has animals to take care of and she has workers at her home working on her house. PAST PSYCHIATRIC ILLNESS: The patient was a previous patient on this unit 06/30/2018. At that time, her past psychiatric history was that she was being given Lexapro, Seroquel, and Ativan by her primary care provider. The patient denies any past suicidal attempts or psychiatric contact. The patient was admitted to the unit as her daughter states that it had been a gradual process with her last Ativan being apparently on June 24 and the patient started having new tremors and was sent to the ER. At this point, the patient had minimized any drinking and was very disheveled. PAST MEDICAL HISTORY: Includes hypothyroidism. PAST SURGICAL HISTORY: The patient has had a hysterectomy, also a facelift, brow lift and a breast reduction. ALLERGIES: INCLUDE ASPIRIN, IODINE AND TETANUS. 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 The patient then states she has been retired since that time. The patient reports that she quit drinking in June of this year. The patient denies any smoking or recreational drug use. The patient states that she has a couple children, one daughter that resides here and a son that lives in another state. Daughter reports that she has had a longstanding alcohol abuse problem. TRAUMA ASSESSMENT: The patient denies any sexual, emotional or physical abuse. REVIEW OF SYSTEMS: Noncontributory except for psychiatric. FAMILY HISTORY: The patient is a poor historian. MENTAL STATUS EXAM: The patient is alert and oriented to place, time, disoriented to situation. The patient's speech is pressured. The patient's eye contact is fair. The patient's posture is within normal limits. There is no evidence of psychomotor agitation. The patient does propel herself in a wheelchair. The patient's mood is depressed, anxious, and easily agitated. The patient's affect is flat, blunt, narrow in range. The patient does not exhibit any suicidal ideation, homicidal ideation, auditory or visual hallucinations; however, does appear to have some delusions. The patient's general fund of knowledge is difficult to assess. The patient exhibited tangential thoughts. The patient has poor proverb interpretation. The patient is not able to complete a serial seven. The patient's judgment is poor. Insight is poor. Impulsivity is high. Memory is fair for recent and poor for remote events. Her strengths are her family support. Her weaknesses are poor psychosocial support. STRENGTHS: Ability to make needs known LIABILITIES: Poor psychosocial support ASSESSMENT: AXIS 1: Major neurocognitive disorder With psychosis, Alcohol use disorder [place] II: Deferred [place] III: Hypothyroidism [place] IV: Moderate stressors [place] V: Global assessment of functioning is 30 IMPRESSION AND PLAN: We will admit the patient to group home for major neurocognitive disorder with psychosis. The patient is admitted to the hospital secondary to her confusion and delusions associated with a dementing illness and chronic serious mental illness. She will be comprehensively evaluated from both a medical, psychological, and social standpoint. She will be treated with both mood, thought and cognitive stabilizing medications. Her long-term prognosis is guarded. Dictated By: Claudia Treadwell APN I have interviewed/examined the above patient and agree with these documented findings. TRANSINT:[id number] Voice Confirmation ID: [id number] DOCUMENT ID: [id number] Dictated By: CLAUDIA TREADWELL I have interviewed/examined the above patient and agree with these documented findings. ARMANDO DE LA TORRE MD at 1537 at 1119 CC: [id number] DICTATION DATE: 10/20/19 1620 INTERLINE CLERK: 10/20/19 1702 ADM IN [facility] [address] [place] [id number]
--- NOTE | 2019-10-21 14:28 | NUR ---
PT C/O TO NURSE OF SHAKING AND PAIN. NURSE OBTAINED TYLENOL ORDER PRN FOR PAIN. WILL ADMINISTER WHEN ORDER IS AVALIABLE.
--- NOTE | 2019-10-21 14:49 | NUR ---
TYLENOL 650 MG PO FOR PAIN. PT CONTS TO SHAKE AT THIS TIME. MEDS ADMINISTED AND WILL CONT TO MONITOR.
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
--- NOTE | 2019-10-21 18:27 | NUR ---
PT CAME TO NURSE STATING THAT HER NECK WAS STILL HURTING SHE FORGOT TO TELL THE DOCTOR WHEN SHE WAS HERE THAT SHE NEEDED SOMETHING FOR PAIN. PT STATED SHE COULDNT EAT OR SLEEP CAUSE HER NECK WAS BOUCHING EVERYWHERE. NURSE ASSISTED PT INTO A RECLINER CHAIR WITH A PILLOW AND SHE RELAXED A BIT. PT CONTS TO SHAKE HEAD.
[2019-10-21 20:00] VITALS: BP 137/81
--- NOTE | 2019-10-21 21:15 | NUR ---
RECEIVED IN DAYROOM. SITTING IN A CHAIR WITH PEERS AT HER SIDE. CALM AND COOPERATIVE WITH CARE AND ASSESSMENT. NO TEARFULNESS AT THIS TIME. ENCOURAGE TO EXPRESS NEEDS. CONTINUES TO SIT CALMLY IN DAYROOM. CONTINUE PLAN OF CARE.
--- NOTE | 2019-10-22 08:00 | NUR ---
REC'D PT IN DINING ROOM WITH PEERS. CALM AND COOPERATIVE WITH ASSESSMENT. PRESCRIBED MEDS PROVIDED ORDERED. MED COMPLIANT. REDIRECT AND REORIENT NEEDED. FALL PRECAUTIONS IN PLACE. WILL CPOC.
[2019-10-22 09:18] VITALS: BP 157/63
--- NOTE | 2019-10-22 19:33 | NUR ---
RECEIVED IN DAYROOM. SITTING IN A CHAIR WITH PEERS AT HER SIDE. CALM AND COOPERATIVE WITH CARE AND ASSESSMENT. SOCIAL WITH STAFF AND PEERS AT TIMES. ENCOURAGE TO EXPRESS NEEDS. CONTINUES TO SIT CALMLY IN WHEELCHAIR. CONTINUES PLAN OF CARE.
[2019-10-22 20:06] VITALS: BP 141/48
--- NOTE | 2019-10-23 09:26 | NUR ---
Nutrition Follow-up: Diet: Regular PO intake: ~72% average x last 9 meals Last BM: none listed since admit. WT: 134# (10/22/19); Admit Wt: 135# (10/19/19) Meds and labs reviewed. Recommend continue current diet. RD following.
--- NOTE | 2019-10-23 12:00 | NUR ---
RECEIVED IN HALLWAY OUTSIDE OF NURSES STATION. CALM AND COOPERATIVE WITH CARE AND ASSESSMENT. NO BEHAVIORS. REDIRECT AND REORIENT NEEDED. EATING AT THIS TIME. CONTINUE PLAN OF CARE.
[2019-10-23 19:51] VITALS: BP 155/61
--- NOTE | 2019-10-23 20:21 | NUR ---
RECEIVED IN DAYROOM. SITTING IN A CHAIR WITH PEERS AT HER SIDE. CALM AND COOPERATIVE WITH CARE AND ASSESSMENT. ASKING ABOUT BEING ABLE TO TALK TO HER FAMILY. EDUCATED ATTORNEY LAWYER TIMES. REDIRECTED AND REORIENT NEEDED. CONTINUES TO SIT CALMLY IN DAYROOM. CONTINUE PLAN OF CARE.
[2019-10-24 10:00] VITALS: BP 147/79
--- NOTE | 2019-10-24 13:05 | NUR ---
PT IN DAYROOM WITH PEERS WATCHING TV. CALM AND COOPERATIVE WITH ASSESSMENT. PRESCRIBED MEDS PROVIDED ORDERED. MED COMPLIANT. REDIRECT AND REORIENT NEEDED. NO BEHAVIORS NOTED AT THIS TIME. FALL PRECAUTIONS IN PLACE. WILL CPOC.
--- NOTE | 2019-10-24 15:08 | PN ---
PATIENT:SILVIA DEGROOT MEDICAL RECORD: [id number] LOCATION:[facility]112 ADMISSION DATE: 10/19/19 PROGRESS NOTE DATE OF SERVICE: 10/23/2019 SUBJECTIVE: The patient's case was discussed with staff. She has no new complaint. OBJECTIVE: The patient is impaired cognitively, but not disruptive in any significant way. She insists she does not have an alcohol problem. She has limited insight about her situation. She feels certain she can care for herself at home without assistance. ASSESSMENT: Dementia. PLAN: I am going to stop the patient's scheduled Ativan. It may be necessary to resume this at some point or resume it at a smaller dose. I am strongly suspicious that she is not being honest about how much she drinks, which she very much minimizes. What is really not clear is how much the alcohol if any is a component to her current presentation. I think holding the Ativan will give me an answer quickly. TRANSINT:[id number] Voice Confirmation ID: [id number] DOCUMENT ID: [id number] ARMANDO DE LA TORRE MD at 1508 CC: [id number] DICTATION DATE: 10/23/19 1509 CERAMICS MACHINE OPERATOR: 10/23/19 2324 ADM IN [place] [id number] [place] [address]
[2019-10-24 20:11] VITALS: BP 162/53
--- NOTE | 2019-10-24 20:36 | NUR ---
RECEIVED IN DAYROOM. SITTING IN A CHAIR WITH PEERS AT HER SIDE. CALM AND COOPERATIVE WITH CARE AND ASSESSMENT. ENCOURAGE TO EXPRESS NEEDS. REDIRECT AND REOREINT NEEDED. CONTINUES TO SIT CALMLY IN DAYROOM. CONTINUE PLAN OF CARE.
[2019-10-25 10:25] VITALS: BP 161/50
--- NOTE | 2019-10-25 11:06 | NUR ---
Nutrition Follow-up: Diet: Regular PO intake: ~86% average x last 9 meals Last BM: none recorded since admit x 6 days now Wt: 134# (10/22/19); Admit WT: 134.8# (10/19/19) Meds reviewed. No new labs. Recommend bowel regimen to promote BM regularity. Recommend continue current diet. RD following.
--- NOTE | 2019-10-25 11:31 | NUR ---
The patient is awake and alert, she is trying to self propel in a w/c. Explained to her that she needs to get up and ambulate so that she does not lose any muscle. She is oriented x3, but she has poor insight into her situation. At this time she is not showing any anxiety, but she is ambulating. Provide prescribed meds. The patient is compliant with meds. Continue POC.
--- NOTE | 2019-10-25 16:23 | PN ---
PATIENT:SILVIA DEGROOT MEDICAL RECORD: [id number] LOCATION:[facility]112 ADMISSION DATE: 10/19/19 PROGRESS NOTE DATE OF SERVICE: 10/24/2019 SUBJECTIVE: The patient's case was discussed with staff. She has no new complaint. OBJECTIVE: The patient denies intent to harm herself or others. She is impaired cognitively. She is sleeping and eating reasonably well. She has not shown evidence of alcohol withdrawal. ASSESSMENT: Dementia. PLAN: The patient will be maintained on current medicines. I am going to drop the dose of the melatonin to 3 mg a day. TRANSINT:[id number] Voice Confirmation ID: [id number] DOCUMENT ID: [id number] ARMANDO DE LA TORRE MD at 1623 CC: [id number] DICTATION DATE: 10/24/19 1522 BUTT SAWYER: 10/24/19 2131 ADM IN [place] [id number] [place] [id number]
[2019-10-25 20:00] VITALS: BP 139/70
--- NOTE | 2019-10-25 20:42 | NUR ---
RECEIVED IN DAYROOM. SOCIALIZING WITH STAFF AND OTHER PATIENTS. CALM AND COOPERATIVE WITH CARE AND ASSESSMENT. NO BEHAVIORS NOTED. REDIRECT AND REORIENT NEEDED. PARTICIPATING IN GROUPS AT THIS TIME. CONTINUE PLAN OF CARE.
[2019-10-26 10:11] VITALS: BP 189/93
--- NOTE | 2019-10-26 12:59 | NUR ---
IS ORIENTED X 3.PLEASANT AND COOPERATIVE WITH STAFF AND PEERS.COMPLIANT WITH MEDS.NO BEHAVIORS OBSERVED.WILL CONTINUE WITH CURRENT PLAN OF CARE,MONITOR FOR SAFETY AND CHANGES.
--- NOTE | 2019-10-26 16:51 | PN ---
PATIENT:SILVIA DEGROOT MEDICAL RECORD: [id number] LOCATION:[facility]112 ADMISSION DATE: 10/19/19 PROGRESS NOTE DATE OF SERVICE: 10/25/2019 SUBJECTIVE: The patient's case was discussed with staff. She has no new complaint. OBJECTIVE: The patient denies intent to harm herself or others. She tolerates her medicines well. ASSESSMENT: Dementia. PLAN: Current medicines have been reviewed and will be maintained. The patient has improved cognitively. The supply planner renal social worker is going to meet with the patient's daughter to discuss discharge plans. TRANSINT:[id number] Voice Confirmation ID: [id number] DOCUMENT ID: [id number] ARMANDO DE LA TORRE MD at 1651 CC: [id number] DICTATION DATE: 10/25/19 170 FORMAL WAITER/WAITRESS: 10/25/[address] [facility] [address] [place] [id number]
--- NOTE | 2019-10-26 17:27 | NUR ---
ELIZA SPOKE TO PT'S DTR AND ALERTED HER TO PT NOT WANTING TO GO TO A PERSONAL CORRECTION. ELIZA STATED PT IS ORIENTED X4 AND HAS NOT BEEN DEEMED INCOMPETENT. SW STATED SHE WOULD CALL [facility]ULT [facility] SERVICES TO DO A WELLNESS CHECK. SHE STATED SHE IS HESITANT TO PAPER FEEDER THE PT BECAUSE IT MAKES IT LOOK LIKE SHE AGREES WITH THE DISCHARGE. ELIZA STATED SHE WOULD DOCUMENT SHE DOESN'T AGREE WITH THE DISCHARGE. ELIZA EXPLAINED SINCE SHE HAS BEEN ON CURRENT MEDICATION REGIMEN PT HAS CLEARED UP. ELIZA WAS GIVEN A NUMBER TO SPEAK TO PT'S SON SUJATA PT'S POA. SUJATA STATED HE UNDERSTANDS UNIT CANNOT HOLD PT AGAINST HER WILL AND SHE IS READY TO DISCHARGE. HE STATED THERE IS NO OTHER PLACE FOR PT TO GO BUT HOME. ELIZA EXPLAINED PT HAS NOT BEEN DEEMED INCOMPETENT SO SHE CAN MAKE HER OWN DECISIONS AT THIS TIME. ELIZA EXPLAINED PT'S WISH TO SELL HER HOUSE AND THEN GO INTO AN ASSISTED LIVING FACILITY. SUJTAA VOICED UNDERSTANDING OF DISCUSSION. ELIZA ATTEMPTED TO CALL BACK [facility] AFTER 530 TO DISCUSS IF SHE WILL PAPER FEEDER PT BUT THERE WAS NO ANSWER. ELIZA WILL CALL TOMORROW TO SEE IF SHE WILL PAPER FEEDER OR IF PT NEEDS TO CALL ANOTHER PERSON TO PICK HER UP FOR DISCHARGE.
[2019-10-26] MEDS ORDERED: DONEPEZIL HCL5 MG PO (17:57)
[2019-10-26] MEDS ORDERED: MELATONIN 3 MG1 TAB PO (17:57)
[2019-10-26 19:36] VITALS: BP 182/60
--- NOTE | 2019-10-27 01:34 | NUR ---
B) Patient is aalert and oriented to person and place, social with peers and very verbal. I) Administered scheduled medications as ordered, assisted with needs, R) mediation compliant, pleasant and friendly, P) Continue plan of care.
[2019-10-27 09:41] VITALS: BP 150/64
--- NOTE | 2019-10-27 11:00 | NUR ---
The patient is awake and alert, she is [place]. She is calm and has not shown any anxiety at this time. She ambulates independently, but she tries to sit in the w/c. She has poor insight into her situation. She is d/cing to home today. Faxed d/c order, patient summary, and MAR to PCP. Will provide written and verbal instructions about medications and appointments. Provide prescribed meds. The patient is compliant with meds. Continue POC.
--- NOTE | 2019-10-27 13:12 | PN ---
PATIENT:SILVIA DEGROOT MEDICAL RECORD: [id number] LOCATION:[facility] ADMISSION DATE: 10/19/19 PROGRESS NOTE DATE OF SERVICE: 10/26/2019 SUBJECTIVE: The patient's case was discussed with staff. She has no new complaint. OBJECTIVE: The patient is in good behavioral control. She has limited insight about her situation. She generally tolerates her medicines well. She is fully oriented, calm, and cooperative. She slept well last night. She is eating well today. ASSESSMENT: Dementia. PLAN: The patient has improved significantly. She still has evidence of cognitive impairment, but she is significantly better. She is not a drinker to excess, which is information that was previously thought to be correct, it is not. There does seem to be some significant evidence that she has engaged in polypharmacy and I have cautioned her about not taking any medications that are not prescribed to her and only taking the medications exactly as they are prescribed. She wants to go home. Her daughter has been involved in the discharge planning and is fine with her coming home. They are going to try to provide an additional amount of supervision to her. TRANSINT:[id number] Voice Confirmation ID: [id number] DOCUMENT ID: [id number] ARMANDO DE LA TORRE MD at 1312 CC: [id number] DICTATION DATE: 10/26/191751 BOILER ATTENDANT: 10/26/192054 ADM IN [place] [address] [place] [address]
--- NOTE | 2019-10-27 16:10 | NUR ---
PT DISCHARGED THIS SHIFT WITH DAUGHTER THIS SHIFT. PERSONAL BELONGINGS SPENT HOME WITH PT. NURSE EDUCATED DAUGHTER AND PT ON MED AND TO CONTINUE WHAT MEDS THE DOCTOR PRESCRIBED. NURSE WENT OVER THE MEDS WERE SENT TO WHICH PHARMACY AND IF THEY WERE INCORRECT WE COULD CALL THEM INTO THE PHARMACY. PT VERBALIZIED UNDERSTANDING. PT WAS THRILLED TO BE DISCHARGING. WILL CONT D/C PLAN.
== END 2019-10-27 17:14 | disposition home or self-care (01) | DRG 57 ==
LOC: D.ER 14:42 → D.PSYCH 20:16
PROVIDERS: Family Medicine; ADMIT Psychiatry & Neurology Psychiatry; ATTEND Psychiatry & Neurology Psychiatry
DX: G30.1 Alzheimer's disease with late onset (principal); F02.81 Dementia in other diseases classified elsewhere, unspecified severity, with behavioral disturbance; F33.0 Major depressive disorder, recurrent, mild; I10 Essential (primary) hypertension; D64.9 Anemia, unspecified; K21.9 Gastro-esophageal reflux disease without esophagitis; G47.00 Insomnia, unspecified; W55.01XA Bitten by cat, initial encounter; F41.9 Anxiety disorder, unspecified

== ENCOUNTER 2020-06-05 18:40 | Inpatient (IN) | payer MEDICARE, BC ==
[~2020-06-05] VITALS: Ht 162.6 cm; Wt 61.9 kg
[~2020-06-05 18:40] MED LIST changes: +AUGMENTIN 875-11 TAB PO; +COLACE100 MG PO; +DONEPEZIL HCL5 MG PO; +FLORAJEN3 CAPS460 MG PO; +GEODON20 M1 IM; +HYDROCODON-ACE1 EAC7 PO; +MELATONIN 3 MG1 TAB PO; +MELATONIN10 M1 PO; +MIRALAX17 GM PO; +SYNTHROID125 MCG PO
--- NOTE | 2020-06-05 18:52 | NUR ---
PT ADMITTED FROM MED-SURG UNDER THE CARE OF DR. DE LA TORRE FOR INCREASED CONFUSION ON MED-SURG. CODE STATUS: FULL CODE. VITALS: B/P: 135/76, P: 74, R:17, 02: 98%, R:18. WEIGHT: 136.4 IBS. PT AMBULATES. DRESSING NOTED TO RIGHT SIDE OF NECK. PT IS CONFUSED TO TIME AND SITUATION. PT IS ORIENTED TO PERSON, PLACE. WBC IS ELEVATED. HX: DEMENTIA, ANXIETY, HTN. PT STATED "I WONDER IF MY FRIENDS ARE HERE AND WE ARE GOING TO THE [employer] [facility]." PT IS CONFUSED BUT VERY PLESANT AND FRIENDLY.
[2020-06-05 20:00] VITALS: BP 142/77
[2020-06-05 23:35] VITALS: BP 142/77; BMI 23.4
--- NOTE | 2020-06-06 01:18 | NUR ---
RECEIVED PATIENT IN HER ROOM AT THE BEGINNING OF THE SHIFT, SHE CAME OUT OF HER ROOM A COUPLE OF TIMES "WONDERING ABOUT HER STUFF". SHE DID NOT HAVE ANY HS MEDS THIS EVENING. SHE FOLLOWS DIRECTIONS WELL AT THIS TIME. SHE WAS GIVEN ATIVAN PO @ 0100 FOR ANXIETY THAT WAS CAUSING HER TO NOT BE ABLE TO SLEEP. WILL MONITOR FOR EFFECTIVENESS.
[2020-06-06 08:18] LABS: HEMOGLOBIN 11.3 g/dL (12-16); LYMPHOCYTES 12.7 % (15-50); MCHC 32.3 g/dL (31.0-37.0); MCV 95.9 fL (80.0-100.0); NEUTROPHILS 76.4 % (40-80); PLATELET COUNT 368 10x3/uL (130-400); RBC 3.65 10x6/uL (4.00-5.40); RDW 13.3 % (11.5-14.5); WBC 10.1 10x3/uL (4.8-10.8)
[2020-06-06 08:29] LABS: ALBUMIN 2.6 g/dL (3.4-5.0); ANION GAP 9.3 mmol/L (8-16); BILIRUBIN - TOTAL 0.23 mg/dL (0.2-1.3); CALCIUM 8.4 mg/dL (8.5-10.1); CARBON DIOXIDE 28.8 mmol/L (21.0-32.0); CHOL - HDL RATIO 3.4 ratio (2.3-4.1); CREATININE - SERUM 0.8 mg/dL (0.6-1.3); LDL-HDL RATIO 1.9 ratio (1.5-3.5); POTASSIUM - SERUM 4.1 mmol/L (3.5-5.1); PROTEIN - SERUM 6.2 g/dL (6.4-8.2)
--- NOTE | 2020-06-06 08:47 | NUR ---
NURSE COLLECTED SARS-19 SWAB. PT TOLERATED WELL.
[2020-06-06 08:50] VITALS: BP 196/81
--- NOTE | 2020-06-06 08:54 | PN ---
PATIENT:SILVIA DEGROOT MEDICAL RECORD: [id number] LOCATION:[facility]112 ADMISSION DATE: 06/05/20 PROGRESS NOTE DATE OF SERVICE: 06/05/2020 SUBJECTIVE: The patient's case was discussed with staff. She has no new complaint. OBJECTIVE: The patient continues to have significant agitation and behavioral disruptions. ASSESSMENT: Dementia. PLAN: The patient's daughter is fine with her coming to the behavioral unit when she is finished on the medical floor and I am approving her transfer as soon as she is medically cleared. TRANSINT:[id number] Voice Confirmation ID: [id number] DOCUMENT ID: [id number] ARMANDO DE LA TORRE MD at 0854 CC: [id number] DICTATION DATE: 06/05/20 165 ACCOUNTANT: 06/06/20 0111 ADM IN [facility] [address] [place] [address]
[2020-06-06 13:05] VITALS: Ht 162.6 cm; Wt 61.9 kg
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
[2020-06-06 20:00] VITALS: BP 189/74
--- NOTE | 2020-06-07 02:46 | NUR ---
B) Patient ie alert and oriented to person, calm and cooperative this shift, staying in her room for PUI isolation, I) Administered scheduled medications as ordered, monitored for safety, maintained isolation, R) Mediation compliant, quiet and resting, P) Continue plan of care.
[2020-06-07 08:13] LABS: RAPID PLASMA REAGIN Non Reactive (Non Reactive)
[2020-06-07 11:37] VITALS: BP 193/90
--- NOTE | 2020-06-07 12:13 | NUR ---
PT SITTING UP ON BEDSIDE TALKING WITH A STAFF MEMBER. PT IS CALM AND COOPERATIVE WITH STAFF AND PEERS. PT IS COMPLIANT WITH MEDS, VITALS AND ASSESSMENTS. PT IS PLEASANTLY CONFUSED. NO BEHAVIORS NOTED. CAN MAKE NEEDS KNOWN. AMBULATES. BED ALARM IN PLACE. WILL CONT PLAN OF CARE.
[2020-06-07 20:00] VITALS: BP 131/55
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
[2020-06-08 08:14] VITALS: BP 147/68
--- NOTE | 2020-06-08 15:36 | NUR ---
The patient is pleasant and calm, she is on isolation as she is a new patient and she was tested for Covid. The patient has been cooperative, she has poor insight into her situation, but she is eating and she is calm. We still need to get a urine sample from her. Her daughter called and checked on her, explained to her that she is on isolation and did not have a phone in her room so she is not able to take phone calls d/t no phones in her room. The daughter verbalized understanding. Provide prescribed meds. The patient is compliant with meds. Continue POC.
[2020-06-08 20:00] VITALS: BP 178/57
--- NOTE | 2020-06-08 22:15 | NUR ---
PT IS ALERT AND ORIENTED TO SELF, PLACE AND SITUATION. RECEIVED IN HER ROOM IN ISOLATION UNTIL HER COVID RESULTS. SHE IS CALM AND COOPERATIVE WITH STAFF. COMPLIANT WITH ALL MEDICATIONS. EASY TO REDIRECT.
--- NOTE | 2020-06-09 08:15 | NUR ---
The patient is awake and she is pleasant she has rang her humphreys a lot this am. She said "Are they going to be bringing breakfast soon and I need some more depends." Let her know that we will get her breakfast and depends soon. Provide prescribed meds. The patient is compliant with meds. She can be demanding at times. She ambulates and feeds herself. She is incontinent of urine at times, we still need to collect a urine. She remains on isolation until her covid test results. Continue POC.
[2020-06-09 09:00] VITALS: BP 133/108
--- NOTE | 2020-06-09 19:19 | NUR ---
RECEIVED IN HALLWAY. TALKING ON THE PHONE WITH FAMILY. OFF PUI NOW. SOCAILIZING WITH PEERS. CALM AND COOPERATIVE WITH CARE AND ASSESSEMENT. ENOURAGE TO EXPRESS NEEDS. REDIRECT AND REORIENT NEEDED. SOCIALIZING WITH PEERS IN HALLWAY AT THIS TIME. CONTINUE PLAN OF CARE.
[2020-06-09 21:35] VITALS: BP 132/65
[2020-06-10 06:55] LABS: BILIRUBIN NEGATIVE (NEGATIVE); KETONE NEGATIVE (NEGATIVE); NITRITE NEGATIVE (NEGATIVE); UROBILINOGEN NORMAL mg/dL (< 2)
[2020-06-10 10:31] VITALS: BP 110/70
--- NOTE | 2020-06-10 11:23 | NUR ---
Nutrition Follow-up: Diet: Regular PO intake: ~93% average x last 6 meals Last BM: 06/08/20. Wt: 136# (06/06/20); Admit Wt: 136.4# (06/05/20) Meds noted: miralax, probiotics. Labs noted. Patient appears to be meeting estimated nutrition needs at this time. Recommend continue current diet. RD will follow-up 06/12/20.
--- NOTE | 2020-06-10 13:26 | NUR ---
THIS NURSE CALLED DR MCNALLY'S OFFICE TO FIND OUT WHEN HER STITCHES COULD BE TAKEN OUT AND WAS INFORMED BY DR MCNALLY'S NURSE THAT THE STITCHES CAN BE TAKEN OUT TODAY.
--- NOTE | 2020-06-10 13:26 | NUR ---
PREVIOUS SHIFT REPORTED PATIENT HAS STITCHES IN UNDER BANDAGE AND DR OFFICE NEEDS TO BE CALLED REGUARDING WHEN STITCHES CAN BE REMOVED. THIS NURSE CALLED DR MCNALLY'S OFFICE TO FIND OUT WHEN STITICHES CAN BE REMOVED AND WAS INFORMED BY DR MCNALLY'S NURSE THAT STITCHES CAN BE REMOVED TODAY. BANDAGE AND STERI STRIPS TO RIGHT SIDE OF NECK REMOVED. NO STITCHES NOTED. INCISION EDGES ARE WELL APPROXIMATED. NO DRAINAGE OR REDNESS NOTED.
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
--- NOTE | 2020-06-10 17:49 | NUR ---
RECEIVED IN PATIENT ROOM. RESTING IN BED WITH EYES OPEN. CALM AND COOPERATIVE WITH CARE AND ASSESSMENT. ANXIOUS. DEMANDING TO HAVE A TV AND PHONE IN HER ROOM. REDIRECT AND REORIENT NEEDED. EATING DINNER AT THIS TIME. CONTINUE PLAN OF CARE.
--- NOTE | 2020-06-10 21:39 | NUR ---
RECEIVED IN BEDROOM. UP WALKING AROUND GETTING READY FOR BED. CALM AND COOPERATIVE WITH CARE AND ASSESSMENT. ENCOURAGE TO EXPRESS NEEDS. REDIRECT AND REORIENT NEEDED. RESTING IN BED WITH EYES OPEN AT THIS TIME. CONTINUE PLAN OF CARE.
[2020-06-10 22:55] VITALS: BP 153/65
[2020-06-11 08:00] VITALS: BP 109/70
--- NOTE | 2020-06-11 13:17 | PN ---
PATIENT:SILVIA DEGROOT MEDICAL RECORD: [id number] LOCATION:KIRILL [facility]112 ADMISSION DATE: 06/05/20 PROGRESS NOTE DATE OF SERVICE: 06/10/2020 SUBJECTIVE: The patient's case was discussed with staff. She has no new complaint. OBJECTIVE: The patient is in good behavioral control. She has poor insight about her situation. She is impaired cognitively. She does not appear to be adversely impacted by the Ativan that she takes 3 times daily. ASSESSMENT: Dementia. PLAN: Current medicines have been reviewed and will be maintained. Her long-term prognosis is guarded. I am going to discontinue her hydrocodone as it seems excessive given the fact that her biopsy was 2 weeks ago. TRANSINT:[id number] Voice Confirmation ID: [id number] DOCUMENT ID: [id number] ARMANDO DE LA TORRE MD at 1317 CC: [id number] DICTATION DATE: 06/10/20 1608 DIRECTOR OF CASINO: 06/10/20 1733 ADM IN [facility] [address] [place] [id number]
[2020-06-11] MEDS ORDERED: LEXAPRO10 MG PO (15:59)
[2020-06-11] MEDS ORDERED: ATIVAN0.5 MG PO (15:59)
--- NOTE | 2020-06-11 17:34 | NUR ---
RECEIVED IN PATIENT ROOM. RESTING IN BED WITH EYES OPEN. CALM AND COOPERATIVE WITH CARE AND ASSESSMENT. ANXIOUS AND AGITATED THIS MORNING. GETTING OTHER PATIENTS WORKED UP BY TELLING THEM WE ARE HOLDING THEM HOSTAGE AND TAKING AWAY THEIR DIGNITY BY NOT ALLOWING TVS AND PHONES IN THE ROOMS. REDIRECT AND REORIENT NEEDED. EATING DINNER AT THIS TIME. CONTINUE PLAN OF CARE.
[2020-06-11 20:00] VITALS: BP 115/47
--- NOTE | 2020-06-11 20:39 | NUR ---
RECEIVED IN BEDROOM. RESTING IN BED WITH EYES CLOSED. RESPONDS TO VOICE. CALM AND COOPERATIVE WITH CARE AND ASSESSMENT. ENCOURAGE TO EXPRESS NEEDS. REORIENT NEEDED. CONTINUES TO REST QUIETLY IN BED. CONTINUE PLAN OF CARE.
--- NOTE | 2020-06-12 08:34 | PN ---
PATIENT:SILVIA DEGROOT MEDICAL RECORD: [id number] LOCATION:K[facility]ILL [facility]112 ADMISSION DATE: 06/05/20 PROGRESS NOTE DATE OF SERVICE: 06/11/2020 SUBJECTIVE: The patient's case was discussed with staff. She has no new complaint. OBJECTIVE: The patient is partially oriented. Her mood is euthymic. She has no thoughts of harming herself or others. ASSESSMENT: Dementia. PLAN: The patient will be transitioned out of the hospital and back to the assisted living center tomorrow. Follow up will be with her primary care physician. TRANSINT:[id number] Voice Confirmation ID: [id number] DOCUMENT ID: [id number] ARMANDO DE LA TORRE MD at 0834 CC: [id number] DICTATION DATE: 06/11/20 1556 SEALER SANDER: 06/11/20 2304 ADM IN [facility] [address] [place] [id number]
--- NOTE | 2020-06-12 09:20 | NUR ---
Nutrition Re-assessment Diet: Regular PO intake: ~91% average x last 9 meals Last BM: 06/11/20 Wt: 136# (06/06/20), no new weight Meds noted: probiotics, miralax. No new chem labs Estimated nutrition needs and nutrition diagnosis remain unchanged from initial assessment. Meet nutrition goals at this time. Recommendations/interventions: -Continue current diet. -RD will continue to monitor PO intake and wt trend. -RD will follow-up within 7 days.
--- NOTE | 2020-06-12 12:30 | NUR ---
RECEIVED IN HALLWAY OUTSIDE OF NURSES STATION. CALM AND COOPERATIVE WITH CARE AND ASSESSMENT. ANXIOUS AT TIMES. REDIRECT AND REORIENT NEEDED. EATING LUNCH AT THIS TIME. CONTINUE PLAN OF CARE.
--- NOTE | 2020-06-12 15:00 | NUR ---
electronics worker spoke to daughter, Alma. electronics worker discussed discharge planning needs. electronics worker updated on patient's condition. Patient's daughter stated [facility] was in the process of kicking patient out. She stated she was going to look at to personal care homes tomorrow. She will call social secretary and update on what personal-fpc will be best fit for patient. No other needs voiced at this time. Daughter was approved appreciative of birthday republican and treatment here at the facility with her mom.
[2020-06-12 20:00] VITALS: BP 119/57
--- NOTE | 2020-06-12 20:51 | NUR ---
PT IS ALERT AND ORIENTED X4. CALM AND COOPERATIVE WITH STAFF. COMPLIANT WITH ALL MEDICATIONS. PAUMA. ABLE TO AMBULATE ON HER OWN WITHOUT ASSIT. SHE EXPRESSED APPRECIATION FOR DAYSHIFT THROWING HER A BIRTHDAY [employer]. SPOKE TO HER SON AND HIS FAMILY AND WAS OVERJOYED. MONITOR FOR SAFETY.
[2020-06-13 09:37] VITALS: BP 177/71
--- NOTE | 2020-06-13 10:01 | NUR ---
PT SITTING AT TABLE AT THIS TIME. PT IS COMPLIANT WITH MEDS, VITALS AND ASSESSMENTS. PT IS CONFUSED. ALERT TO PERSON, PLACE. REDIRECT AND REORIENT NEEDED. PT IS [place]. PT IS CALM AND COOPERATIVE WITH CARE. PT IS A GOOD MOOD WITH STAFF AND PEERS. PT IS SOCIALIZING WELL WITH OTHER PTS. PT CAN MAKE NEEDS KNOWN. PT CAN DO SOME ADLS. WILL CONT PLAN OF CARE.
--- NOTE | 2020-06-13 11:59 | PN ---
PATIENT:SILVIA DEGROOT MEDICAL RECORD: [id number] LOCATION:[facility] ADMISSION DATE: 06/05/20 PROGRESS NOTE DATE OF SERVICE: 06/12/2020 SUBJECTIVE: The patient's case was discussed with staff. She has no new complaint. OBJECTIVE: The patient denies intent to harm herself or others. She does tolerate her medicines well. Her condition has dramatically improved and her daughter wants her to return to the assisted living center. The daughter wants to meet with the social sciences lecturer before that happens and they have a meeting tomorrow. Hopefully, after the meeting all concerns will be resolved and she can be discharged. TRANSINT:[id number] Voice Confirmation ID: [id number] DOCUMENT ID: [id number] ARMANDO DE LA TORRE MD at 1159 CC: [id number] DICTATION DATE: 06/12/20 1638 AFFILIATE MARKETING COORDINATOR: 06/12/20 2305 ADM IN [facility] [address] [place] [address]
[2020-06-13 20:00] VITALS: BP 122/54
--- NOTE | 2020-06-13 21:42 | NUR ---
PT IS ALERT AND ORIENTED X4. SHE IS RECEIVED OUTSIDE THE NURSES STATION SOCIALIZING WITH PEERS. VERY [place]. COMPLIANT WITH ALL MEDICATIONS. EASY TO REDIRECT. AMBULATES ON OWN WITHOUT ASSIST. MONITOR FOR SAFETY.
[2020-06-14 14:13] VITALS: BP 144/68
--- NOTE | 2020-06-14 18:05 | NUR ---
Rec'd patient this am up in a chair in hallway. She is A/O times 3 to person, place, and time. She is most of the time calm and coorperative but she has had episodes today of being very nervous, short tempered, and accusations about either other patients or about the staff/hospital and then when she's confronted about this, she will become sweet and apologetic. She thought she was going home today but plans were changed and she became even more upset. She takes her meds whole and is compliant. she attended group today and participated well. She can be directed and redirected easily.
[2020-06-14 20:00] VITALS: BP 136/53
--- NOTE | 2020-06-14 23:42 | NUR ---
RECEIVED PATIENT ON UNIT SITTING AND TALKING WITH ANOTHER PATIENT, SHE IS REALLY DIRECT WITH ALL OF HER NEEDS, HER APPROACH, SHE WAS UPSET BECAUSE SHE DID NOT GET TO LEAVE TODAY. COMPLIANT WITH MEDS. NO ADVERSE REACATION NOTED TO MEDS. ABLE TO MAKE ALL OF HER NEEDS KNOWN. WILL FOLLOW POC
--- NOTE | 2020-06-15 02:41 | NUR ---
RECEIVED PATIENT FROM [facility] VIA AMBULANCE. PATIENT BROUGHT IN ON STRETCHER. SHE IS CALM, SLEEPING. SHE WAS GIVEN HALDOL AND ATIVAN AND CLONIDINE AT [facility] FOR AGGRESSIVE BEHAVIOR AND INCREASED BLOOD PRESSURE. THE HISTORY WAS OBTAINED PER HER . HIS GOAL IS FOR HER MEDS TO GET "STRAIGHTENED OUT" TO HELP BETTER MANAGE HER CONFUSION AND AGRESSION. HE EXPLAINED THAT SHE HAS BEEN HARD TO REDIRECT LATELY AT HOME. HER CODE NUMBER WAS GIVEN TO HIM WHICH IS 9363 THE UNIT RULES REGARDING PHONE TIMES, THE USE OF HALDOL AND ATIVAN WHEN NEEDED AND APPROPRIATE CLOTHING FOR HER WHILE SHE IS HERE, HE VERBALIZED UNDERSTANDING.
[2020-06-15 09:16] VITALS: BP 163/71
--- NOTE | 2020-06-15 10:28 | NUR ---
X-RAY HERE AT THIS TIME. NURSE ASSISTED WITH PT X-RAY. TOLERATED WELL.
--- NOTE | 2020-06-15 12:58 | NUR ---
ALERT, CALM, PLEASANT MOOD, COOPERATIVE. MEDS ADMIN PER ORDERS WITH COMPLETE MED COMPLIANCE NOTED. TAKES MEDS WHOLE. NO ADVERSE REACTION TO MEDICATIONS. NO AGGRESSION OR ADVERSE BEHAVIORS NOTED. CONTINUE PLAN OF CARE.
--- NOTE | 2020-06-15 17:55 | NUR ---
PATIENT USED PHONE TO CALL FAMILY. PATIENT STATED TO FAMILY, "I WAS SUPPOSED TO HAVE DISCHARGED TODAY, BUT THEY SCREWED MY PAPERWORK UP. YOU HAVE GOT TO GET ME OUT OF HERE OR I WON'T HAVE ANY EMOTIONS LEFT AT ALL! THEY SOLD MY CAR AND MY HOUSE, SO I DON'T KNOW WHAT I AM GOING TO DO!"
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
[2020-06-15 20:00] VITALS: BP 148/68
--- NOTE | 2020-06-15 21:37 | NUR ---
RECEIVED PATIENT IN HER ROOM LYING DOWN CALMLY, COMPLIANT WITH MEDS, NO ADVERSE REACTION NOTED TO MEDS, SHE CAN GET UPSET EASILY ABOUT "SMALL THINGS" BUT NORMALLY CALMS DOWN RATHER QUICKLY. WILL FOLLOW POC
[2020-06-16 15:53] VITALS: BP 146/72
--- NOTE | 2020-06-16 17:45 | NUR ---
RECEIVED IN PATIENT ROOM. GETTING READY FOR THE DAY. CALM AND COOPERATIVE WITH CARE AND ASSESSMENT. BECOMES EASILY AGITATED AT TIMES. UPSET ABOUT NOT GOING HOME TODAY. REDIRECT AND REORIENT NEEDED. EATING DINNER AT THIS TIME. CONTINUE PLAN OF CARE.
--- NOTE | 2020-06-16 19:45 | NUR ---
RECEIVED IN HALLWAY AT NURSES STATION. TALKING ON THE PHONE. CALM AND COOPERATIVE WITH CARE AND ASSESSMENT. ANXIETY WHEN TALKING ON THE PHONE. REDIRECT AND REORIENT NEEDED. RESTING IN BED WITH EYES CLOSED AT THIS TIME. CONTINUE PLAN OF CARE.
[2020-06-16 22:24] VITALS: BP 156/74
[2020-06-17 08:00] VITALS: BP 161/68
--- NOTE | 2020-06-17 13:27 | PN ---
PATIENT:SILVIA DEGROOT MEDICAL RECORD: [id number] LOCATION:[facility] ADMISSION DATE: 06/05/20 PROGRESS NOTE DATE OF SERVICE: 06/13/2020 SUBJECTIVE: The patient's case was discussed with staff. She has no new complaint. OBJECTIVE: The patient is eating and sleeping well. She is participating in treatment. She has not been aggressive and she is much more oriented than she was previously. ASSESSMENT: Dementia. PLAN: The patient wants to be discharged today, but the assisted living center has informed us that they will not accept her. Once placement is arranged, she can be reasonably discharged. TRANSINT:[id number] Voice Confirmation ID: [id number] DOCUMENT ID: [id number] ARMANDO DE LA TORRE MD at 1327 CC: [id number] DICTATION DATE: 06/13/201821 PAYROLL ACCOUNTANT: 06/13/20 2140 ADM IN [facility] [address] [place] [address]
--- NOTE | 2020-06-17 17:45 | NUR ---
RECEIVED IN HALLWAY OUTSIDE OF NURSES STATION. SOCIALIZING WITH OTHER PATIENTS. CALM AND COOPERATIVE WITH CARE AND ASSESSMENT. BECAME TEARFUL AND VERY AGITATED WHEN SHE LEARNED SHE WASN'T DISCHARGING TODAY. REDIRECT AND REORIENT NEEDED. EATING DINNER AT THIS TIME. CONTINUE PLAN OF CARE.
--- NOTE | 2020-06-17 20:21 | NUR ---
RECEIVED IN HALLWAY. SOCIALIZING WITH PEERS. CALM AND COOPERATIVE WITH CARE AND ASSESSMENT. ALERT AND ORIENTED. STATES SHE IS TIRED AND DOESN'T WANT A SHOWER TONIGHT BUT WILL TAKE ONE IN THE MORNING. REDIRECT AND REORIENT NEEDED. RESTING IN BED WITH EYES CLOSED AT THIS TIME. CONTINUE PLAN OF CARE.
[2020-06-17 20:52] VITALS: BP 138/67
--- NOTE | 2020-06-18 08:00 | NUR ---
RECEIVED PATIENT IN BED RESTING WITH EYES CLOSED. PT. RESPONDS TO VERBAL STIMULI. CALM AND COOPERATIVE WITH ASSESSMENT AT THIS TIME. PRESCRIBED MEDS PROVIDED ORDERED. MED COMPLIANT. NO BEHAVIORS NOTED AT THIS TIME. FALL PRECAUTIONS IN PLACE FOR SAFETY. WILL CONTINUE PLAN OF CARE.
[2020-06-18 08:05] VITALS: BP 129/63
--- NOTE | 2020-06-18 11:28 | PN ---
PATIENT:SILVIA DEGROOT MEDICAL RECORD: [id number] LOCATION:[facility] ADMISSION DATE: 06/05/20 PROGRESS NOTE DATE OF SERVICE: 06/17/2020 SUBJECTIVE: The patient's case was discussed with staff. She has no new complaint. OBJECTIVE: The patient is oriented, but mistaken about some of the details. She has no thoughts of self-harm. She wants to be discharged. ASSESSMENT: Dementia. PLAN: The patient is unfortunately without a place to go. The assisted living center that she was formerly in is not going to accept her back. It is my opinion, she is appropriate for that facility, but they have decided that they cannot manage her or for some other reason just are not having her back as a resident. This presents something of a problem since she obviously has to have a place to go and her daughter is not really able to care for her. She will be discharged as soon as placement is arranged. TRANSINT:[id number] Voice Confirmation ID: [id number] DOCUMENT ID: [id number] ARMANDO DE LA TORRE MD at 1128 CC: [id number] DICTATION DATE: 06/17/20 1403 MACROECONOMICS PROFESSOR: 06/17/20 1812 ADM IN [place] [id number] [place] [address]
[2020-06-18 20:00] VITALS: BP 150/65
--- NOTE | 2020-06-18 20:26 | NUR ---
RECEIVED IN HALLWAY AT NURSES STATION. TALKING TO AN MHT. CALM AND COOPERATIVE WITH CARE AND ASSESSMENT. ALERT AND ORIENTED X3. REDIRECT AND REORIENT NEEDED. RESTING IN BED WITH EYES CLOSED AT THIS TIME. CONTINUE PLAN OF CARE.
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
--- NOTE | 2020-06-19 09:05 | NUR ---
The patient is awake and alert, she is calm, has poor insight into her situation, She has been pleasant. Provide prescribed meds. The patient is being discharged today. All of her belongings are accounted for, meds sent to [facility]. She is going to [facility] with Dr. Brigette SMALLS home care visits. She ambulates, toilets, and feeds herself. She is forgetful and very [place]. Continue d/c plan.
--- NOTE | 2020-06-19 09:29 | NUR ---
Nutrition Re-Assessment Diet: Regular PO intake: 100% x last 9 meals Last BM: 06/18/20 Wt: 136.2# (06/16/20); Admit Wt: 136.4# (06/05/20) Meds noted: probiotics, miralax. No new labs. Estimated nutrition needs and nutrition diagnosis remain unchanged from initial nutrition assessment at this time. Meeting nutrition goals. Recommendations/Interventions: -Continue current diet. -RD will follow-up within 7 days.
[2020-06-19 10:45] VITALS: BP 178/81
--- NOTE | 2020-06-19 15:20 | NUR ---
The patient is now d/c'd from skilled nursing. All of her belongings are with her. Her daughter is here to pick her up.
--- NOTE | 2020-06-20 16:01 | DS ---
PATIENT:SILVIA DEGROOT :36 MEDICAL RECORD: [id number] DISCHARGE SUMMARY ADMISSION DATE: 06/05/20 DISCHARGE DATE: 06/19/20 IDENTIFYING DATA: The patient is 80 years old and she was admitted to the hospital on a voluntary basis. CHIEF COMPLAINT: Agitation and paranoia. HISTORY OF PRESENT ILLNESS: The patient was recently hospitalized on the medical floor. She was showing evidence of confusion and paranoia and was transferred here for evaluation. She was known to us from previous clinical contact. She had evidence of significant cognitive impairment as well as agitation. HOSPITAL COURSE: The patient was admitted to the psychiatric unit and evaluated from both a medical, psychological, and social standpoint. She was treated with both mood stabilizing and memory enhancing medications and showed significant improvement. She was subsequently transferred back to the assisted living center. DISCHARGE DIAGNOSES: AXIS I: Major neurocognitive disorder of the Alzheimer's type with behavioral disturbances. AXIS II: None. AXIS III: Hypothyroidism. AXIS IV: Moderate stressors. AXIS V: Global assessment of functioning is 40. PLAN: At the time of discharge, the patient was in good behavioral control and had no evidence of acute or direct dangerousness to herself or others. She was tolerating her medicines well. TRANSINT:[id number] Voice Confirmation ID: [id number] DOCUMENT ID: [id number] ARMANDO DE LA TORRE MD at 1601 CC: [id number] DICTATION DATE: 06/19/20 1626 K 12 PRINCIPAL: 06/20/20 0304 DIS IN 06/19/20 [place] [address]
== END 2020-06-19 15:20 | disposition home or self-care (01) | DRG 57 ==
LOC: D.PSYCH 18:40
PROVIDERS: ADMIT Psychiatry & Neurology Psychiatry; ATTEND Psychiatry & Neurology Psychiatry
DX: G30.9 Alzheimer's disease, unspecified (principal); F02.81 Dementia in other diseases classified elsewhere, unspecified severity, with behavioral disturbance; I10 Essential (primary) hypertension; E05.90 Thyrotoxicosis, unspecified without thyrotoxic crisis or storm; F41.9 Anxiety disorder, unspecified; F32.9 Major depressive disorder, single episode, unspecified; G47.00 Insomnia, unspecified; D64.9 Anemia, unspecified; K21.9 Gastro-esophageal reflux disease without esophagitis; K59.00 Constipation, unspecified; M19.90 Unspecified osteoarthritis, unspecified site